=== PATIENT | female | born 1980 | race Caucasian/White ===

== ENCOUNTER 2023-09-18 05:31 | Inpatient (IN) | payer OTHER ==
[2023-09-18] MEDS ORDERED: LORazepam 2 MG/ML INJ IM STA (06:06)
[2023-09-18] MEDS ORDERED: HALOPERIDOL LACTATE 5 MG/ML 1 ML VIAL IM STA (06:21)
[2023-09-18] MEDS ORDERED: diphenhydrAMINE 50 MG/ML 1 ML VIAL IM STA (06:21)
--- NOTE | 2023-09-18 07:30 | ED ---
Psych HPI - General Source: patient Mode of arrival: ambulatory <Elyse Jacinto - Last Filed: 09/18/23 16:00> - General Source: RN notes reviewed, old records reviewed - History of Present Illness MD Complaint: suicidal ideation, feels depressed Associated Psychiatric Symptoms: racing thoughts, auditory hallucinations, visual hallucinations, delusions Quality: constant Improves With: none Treatments Prior to Arrival: placed on mental health hold <Sarmad Diego - Last Filed: 09/18/23 16:43> - General Chief Complaint: Psychiatric Symptoms Stated Complaint: Mental Health Time Seen by Provider: 09/18/23 06:04 - History of Present Illness Initial Comments: Patient is a 43-year-old female who presents via petitioned by her friend for delusions and suicidal ideation. Patient does have delusions during evaluation. She denies homicidal ideation.Patient has no other concerns at this time including fever, chills, headache, shortness of breath, cough, chest pain, abdominal pain, nausea, vomiting, diarrhea, and burning with urination. (Elyse Jacinto) This is a 43-year-old female presenting for psychiatric evaluation and treatment (Sarmad Diego) - Related Data Home Medications Medication Instructions Recorded Confirmed No Known Home Medications 09/18/23 09/18/23 Allergies Allergy/AdvReac Type Severity Reaction Status Date / Time No Known Allergies Allergy Verified 09/18/23 11:03 Review of Systems ROS Other: All systems not noted in ROS Statement are negative. <Elyse Jacinto - Last Filed: 09/18/23 16:00> ROS Other: All systems not noted in ROS Statement are negative. <Sarmad Diego - Last Filed: 09/18/23 16:43> ROS Statement: Those systems with pertinent positive or pertinent negative responses have been documented in the HPI. General Exam Limitations: no limitations General appearance: alert, anxious Head exam: Present: atraumatic, normocephalic, normal inspection Eye exam: Present: normal appearance, PERRL, EOMI. Absent: scleral icterus, conjunctival injection, periorbital swelling Respiratory exam: Present: normal lung sounds bilaterally. Absent: respiratory distress, wheezes, rales, rhonchi, stridor Cardiovascular Exam: Present: regular rate, normal rhythm, normal heart sounds. Absent: systolic murmur, diastolic murmur, rubs, gallop, clicks GI/Abdominal exam: Present: soft, normal bowel sounds. Absent: distended, tenderness, guarding, rebound, rigid Skin exam: Present: warm, dry, intact, normal color. Absent: rash <Elyse Jacinto - Last Filed: 09/18/23 16:00> General appearance: alert, in no apparent distress Head exam: Present: atraumatic, normocephalic, normal inspection Eye exam: Present: normal appearance, PERRL, EOMI. Absent: scleral icterus, conjunctival injection, periorbital swelling ENT exam: Present: normal exam, mucous membranes moist Neck exam: Present: normal inspection. Absent: tenderness, meningismus, lymphadenopathy Respiratory exam: Present: normal lung sounds bilaterally. Absent: respiratory distress, wheezes, rales, rhonchi, stridor Cardiovascular Exam: Present: regular rate, normal rhythm, normal heart sounds. Absent: systolic murmur, diastolic murmur, rubs, gallop, clicks GI/Abdominal exam: Present: soft, normal bowel sounds. Absent: distended, te nderness, guarding, rebound, rigid Extremities exam: Present: normal inspection, full ROM, normal capillary refill. Absent: tenderness, pedal edema, joint swelling, calf tenderness Back exam: Present: normal inspection Neurological exam: Present: alert, oriented X3, CN II-XII intact Psychiatric exam: Present: normal affect, normal mood Skin exam: Present: warm, dry, intact, normal color. Absent: rash <Sarmad Diego - Last Filed: 09/18/23 16:43> Course <Sarmad Diego - Last Filed: 09/18/23 16:43> Vital Signs 09/18/23 09/18/23 05:37 07:42 Temperature 98.2 F 98.6 F Pulse Rate 117 H 71 Respiratory 30 H 18 Rate Blood Pressure 104/68 O2 Sat by Pulse 98 98 Oximetry - Reevaluation(s) Reevaluation #1: 09/18/23 16:43 Medical records reviewed (Sarmad Diego) Reevaluation #2: 09/18/23 16:43 Medical clear for psychiatric evaluation (Sarmad Diego) Medical Decision Making <Elyse Jacinto - Last Filed: 09/18/23 16:00> <GwenrenatoSarmad Alan - Last Filed: 09/18/23 16:43> - Medical Decision Making Was pt. sent in by a medical professional or institution ([facility], [facility] [facility], urgent care, hospital, or fci...) When possible be specific @ -No Did you speak to anyone other than the patient for history (EMS, parent, family, police, friend...)? What history was obtained from this source @ -No Did you review nursing and triage notes (agree or disagree)? Why? @ -I reviewed and agree with nursing and triage notes Were old charts reviewed (outside hosp., previous admission, EMS record, old EKG, old radiological studies, urgent care reports/EKG's, fci records)? Report findings @ -No old charts were reviewed Differential Diagnosis (chest pain, altered mental status, abdominal pain women, abdominal pain men, vaginal bleeding, weakness, fever, dyspnea, syncope, headache, dizziness, GI bleed, back pain, seizure, CVA, palpatations, mental health)? @ -not applicable EKG interpreted by me (3pts min.). @ -As above X-rays interpreted by me (1pt min.). @ -None done CT interpreted by me (1pt min.). @ -None done U/S interpreted by me (1pt. min.). @ -None done What testing was considered but not performed or refused? (CT, X-rays, U/S, labs)? Why? @ -None What meds were considered but not given or refused? Why? @ -None Did you discuss the management of the patient with other professionals (professionals i.e. [facility], [facility], lab, RT, psych nurse, social media manager, metal box maker, teacher, immigration officer, patient case coordinator)? Give summary @ -No Was smoking cessation discussed for >3mins.? @ -[No] Was critical care preformed (if so, how long)? @ -[No] Were there social determinants of health that impacted care today? How? (Homelessness, low income, unemployed, alcoholism, drug addiction, transportation, low edu. Level, literacy, decrease access to med. care, fdc, rehab)? @ -[No] Was there de-escalation of care discussed even if they declined (Discuss DNR or withdrawal of care, Hospice)? DNR status @ -[No] What co-morbidities impacted this encounter? (DM, HTN, Smoking, COPD, CAD, Cancer, CVA, ARF, Chemo, Hep., AIDS, mental health diagnosis, sleep apnea, morbid obesity)? @ -[None] Was patient admitted / discharged? Hospital course, mention meds given and route, prescriptions, significant lab abnormalities, going to OR and other pertinent info. @ -43 year old female presenting for psychiatric evaluation. Patient is manic and very upset during evaluation she did try to elope. She was given Ativan for acute psychosis she did require further medication. Further testing with laboratory studies and imaging not indicated at this time. Patient is cleared for psychiatric evaluation Patient evaluated by EPS she will be admitted for further evaluation and management Undiagnosed new problem with uncertain prognosis? @ -[No] Drug Therapy requiring intensive monitoring for toxicity (Heparin, Nitro, Insulin, Cardizem)? @ -[No] Were any procedures done? @ -[No] Diagnosis/symptom? @ -acute psychosis Acute, or Chronic, or Acute on Chronic? @ -acute Uncomplicated (without systemic symptoms) or Complicated (systemic symptoms)? @ uncomplicated Side effects of treatment? @ -[No] Exacerbation, Progression, or Severe Exacerbation? @ -[No] Poses a threat to life or bodily function? How? (Chest pain, [place], [place], pneumonia, PE, COPD, DKA, ARF, appy, cholecystitis, CVA, Diverticulitis, Homicidal, Suicidal, threat to staff... and all critical care pts) @ No is my attending (Elyse Jacinto) 43 female will be admitted for psychiatric evaluation and treatment (Sarmad Diego) - Lab Data Lab Results 09/18/23 Range/Units 12:12 Urine Opiates Screen Not Detected (NotDetected) Ur Oxycodone Screen Not Detected (NotDetected) Urine Methadone Screen Not Detected (NotDetected) Ur Propoxyphene Screen Not Detected (NotDetected) Ur Barbiturates Screen Not Detected (NotDetected) U Tricyclic Antidepress Not Detected (NotDetected) Ur Phencyclidine Scrn Not Detected (NotDetected) Ur Amphetamines Screen Not Detected (NotDetected) U Methamphetamines Scrn Not Detected (NotDetected) U Benzodiazepines Scrn Detected H (NotDetected) Urine Cocaine Screen Not Detected (NotDetected) U Marijuana (THC) Screen Detected H (NotDetected) Disposition <Elyse Jacinto - Last Filed: 09/18/23 16:00> Is patient prescribed a controlled substance at d/c from ED?: No <Sarmad Diego - Last Filed: 09/18/23 16:43> Clinical Impression: Acute psychosis Disposition: TRANSFER TO PSYCH HOSP/UNIT Condition: Fair Referrals: None,Stated [Primary Care Provider] - 1-2 days
[2023-09-18 12:38] LABS: Amphetamine Screen,Urine Not Detected (NotDetected); Barbiturate Screen,Urine Not Detected (NotDetected); Benzodiazepines Screen,Urine Detected (NotDetected); Cocaine Screen,Urine Not Detected (NotDetected); Methadone Screen, Urine Not Detected (NotDetected); Opiate Screen,Urine Not Detected (NotDetected); Oxycodone Screen, Urine Not Detected (NotDetected); Phencyclidine Screen,Urine Not Detected (NotDetected); Tricyclic Antidepressant,Urine Not Detected (NotDetected); Urn Cannabinoid Scrn Detected (NotDetected)
[2023-09-18] MEDS ORDERED: LORazepam 2 MG/ML INJ IM PRN (17:03)
[2023-09-18] MEDS ORDERED: HALOPERIDOL LACTATE 5 MG/ML 1 ML VIAL IM PRN (17:05)
[2023-09-18] MEDS: LORazepam 1 MG TAB PO PRN (19:39)
[2023-09-18] MEDS: haloperidoL 5 MG TAB PO SCH (19:39)
[2023-09-19] MEDS: haloperidoL 5 MG TAB PO SCH ×2 (00:03→09:56)
--- NOTE | 2023-09-19 06:16 | P.MDCNMH ---
History of Present Illness H&P Date: 09/19/23 Chief Complaint: Medical evaluation 43-year-old female no significant past medical history Patient was brought into the hospital petitioned by her friend for delusional and suicidal ideation. Patient currently denies any hallucinations or suicidal thoughts. She denies any medical concerns at this time.\ she denies any fever, chills, cough, sore throat, chest pain , trouble breathing , nausea , vomiting, abd pain , changes in urinary or bowel habits. she denies tobacco smoking, she claims that she uses THC oils and social alcohol review of systems Pertinent positives as noted in HPI. All other systems were reviewed and are negative on exam Constitutional: No acute distress, conversant Eyes: Anicteric sclerae, moist conjunctiva, Pupils equal round reactive to light ENMT: NC/AT Lungs: Clear to auscultation Clear to percussion Normal respiratory effort, no accessory muscle use Cardiovascular: Heart regular in rate and rhythm, No murmurs, gallops, or rubs No peripheral edema Abdominal: Soft Nontender, no guarding, rebound or rigidity Abdomen moving with respiration Normoactive bowel sounds Extremities: No digital cyanosis No clubbing Pedal pulses intact and symmetrical Radial pulses intact and symmetrical No calf tenderness Psychiatric: Alert and oriented to person, place and time Neuro Muscles Strength 5/5 in all 4 extremities Sensation to light touch grossly present throughout Cranial nerves II-XII grossly intact Past Medical History Past Medical History: No Reported History History of Any Multi-Drug Resistant Organisms: None Reported Past Surgical History: No Surgical Hx Reported Past Psychological History: Anxiety, Depression Smoking Status: Never smoker Medications and Allergies Home Medications Medication Instructions Recorded Confirmed Type No Known Home Medications 09/18/23 09/18/23 History Allergies Allergy/AdvReac Type Severity Reaction Status Date / Time No Known Allergies Allergy Verified 09/19/23 00:29 Physical Exam Vitals: Vital Signs Temp Pulse Pulse Resp BP BP Pulse Ox 09/18/23 20:00 98.4 F 104 H 18 124/79 98 09/18/23 07:42 98.6 F 71 18 104/68 98 Intake and Output 09/18/23 09/18/23 09/19/23 14:59 22:59 06:59 Other: Weight 52.163 kg Cranial Nerve Examination - Cranial Nerves Cranial Nerve II- Optic: Intact Cranial Nerve III- Oculomotor: Intact Cranial Nerve IV- Trochlear: Intact Cranial Nerve V- Trigeminal: Intact Cranial Nerve - Abducens: Intact Cranial Nerve VII- Facial: Intact Cranial Nerve VIII- Auditory: Intact Cranial Nerve IX- Glossopharyngeal: Intact Cranial Nerve X- Vagus: Intact Cranial Nerve XI- Accessory: Intact Cranial Nerve XII- Hypoglossal: Intact Results Labs: Abnormal Lab Results - Last 24 Hours (Table) 09/18/23 Range/Units 12:12 U Benzodiazepines Scrn Detected H (NotDetected) U Marijuana (THC) Screen Detected H (NotDetected) Assessment and Plan Assessment: Delusional thoughts suicidal ideation Management per psych Stable from medical standpoint Blood work still pending Thank you for this consultation
[2023-09-19] MEDS ORDERED: PALIPERIDONE 3 MG TAB.ER.24 PO STA (10:25)
[2023-09-19 10:28] LABS: Basophils % (A) 0 %; Eosinophils % (A) 1 %; HCT 42.4 % (34.0-46.0); HGB 14.1 gm/dL (11.4-16.0); Lymphocytes # (A) 1.2 k/uL (1.0-4.8); Lymphocytes % (A) 16 %; MCH 30.9 pg (25.0-35.0); MCHC 33.3 g/dL (31.0-37.0); MCV 92.9 fL (80.0-100.0); Mean Platelet Volume 8.1; Monocytes # (A) 0.5 k/uL (0-1.0); Monocytes % (A) 7 %; Neutrophils # (A) 5.7 k/uL (1.3-7.7); Neutrophils % (A) 75 %; Platelet Count 210 k/uL (150-450); RBC 4.57 m/uL (3.80-5.40); RDW 12.6 % (11.5-15.5); WBC 7.6 k/uL (3.8-10.6)
--- NOTE | 2023-09-19 10:32 | P.HP ---
Psychiatric H&P - . H&P Date: 09/19/23 History & Physical: Allergies Allergy/AdvReac Type Severity Reaction Status Date / Time No Known Allergies Allergy Verified 09/19/23 00:29 Vital Signs Temp 97.6 F 09/19/23 06:32 Pulse 115 H 09/19/23 06:32 Resp 18 09/18/23 20:00 BP 128/74 09/19/23 06:32 Pulse Ox 98 09/18/23 20:00 FiO2 Intake & Output 09/18/23 09/19/23 09/19/23 18:59 06:59 18:59 Weight 52.163 kg Laboratory Last Values Urine Opiates Screen Not Detected (NotDetected) 09/18/23 12:12 Ur Oxycodone Screen Not Detected (NotDetected) 09/18/23 12:12 Urine Methadone Screen Not Detected (NotDetected) 09/18/23 12:12 Ur Propoxyphene Screen Not Detected (NotDetected) 09/18/23 12:12 Ur Barbiturates Screen Not Detected (NotDetected) 09/18/23 12:12 U Tricyclic Antidepress Not Detected (NotDetected) 09/18/23 12:12 Ur Phencyclidine Scrn Not Detected (NotDetected) 09/18/23 12:12 Ur Amphetamines Screen Not Detected (NotDetected) 09/18/23 12:12 U Methamphetamines Scrn Not Detected (NotDetected) 09/18/23 12:12 U Benzodiazepines Scrn Detected (NotDetected) H 09/18/23 12:12 Urine Cocaine Screen Not Detected (NotDetected) 09/18/23 12:12 U Marijuana (THC) Screen Detected (NotDetected) H 09/18/23 12:12 Coronavirus (PCR) Not Detected (Not Detectd) 09/18/23 17:02 09/19/23 10:25 IDENTIFYING DATA: Patient is a 43-year-old female who is currently staying with her friend in the area, but currently lives with her in [place] and was visiting. Denies having any kids. HPI: Patient presented to the hospital yesterday and apparently was complaining of depression and suicidal ideations. Patient was petitioned by her friend stating "talking to spirits, thinks she is Kalyan, worried her family's.okay, calling police to check on friends". Petition also states the patient has not been sleeping, panic attacks, outbursts, erratic thoughts, paranoid thinking, history of suicide". Patient was admitted involuntarily to the mental health unit. Patient was seen today pacing the unit appeared to be disheveled in appearance. She was agreeable to streaked red in the office. She was fairly labile, tearful when speaking about why she is in the hospital. She was positive for benzodiazepines and THC on her UDS. She claims that "my family doesn't trust me". She claims that she witnessed Marko downhill since 2020. Claims that she only wants to go to the [facility] and smoke marijuana as her "medication". Claims that she is focused on discharge and wants to leave at this time. Has poor decision making skills, poor insight and judgment. She did not want to take other medications. She claims that she has a several million dollar net worth, she is fairly grandiose, talking about negotiating against the largest [employer] in the [place] as her job. She was fairly tearful, she was displaying other delusions and also paranoia towards others including her family. She states that she is seeing "signs everywhere". She states that several of the nurses that interacted with her in the ER and also on the unit have names of her relatives. She states that her sleep has been very poor lately, appetite as been fair.Patient denies any suicidal or homicidal ideations intent or plan. At this time patient denies any auditory or visual hallucinations. She has a flight of ideas, difficult to redirect. Pacing the room. She claims that she only smokes marijuana and does THC products. Denies any cigarettes or any other recreational drug use. PAST PSYCHIATRIC HISTORY: Patient states that she has no history of mental illness. Patient denies being on any psychiatric medications. Patient denies any previous psychiatric hospitalizations. Patient denies any psychiatric outpatient follow-up. Patient claims that she overdosed in her car in 2020 on pills. PMH:[As per ER note ALLERGIES: as per EMR CHEMICAL DEPENDENCY HISTORY: as per HPI FAMILY PSYCHIATRIC/SUBSTANCE USE HISTORY: denies SOCIAL HISTORY: Patient was born and raised in [place] however moved to [place] with her . She is currently visiting a friend in the area. She states that she has a degree in food [employer] and also organizational communications. She denies having any kids, she denies any legal history. MENTAL STATUS EXAM: General Appearance: Patient appears to be disheveled in appearance, unkempt hair, rosenberg and black hair, stated age is alert, pacing the room and labile. Patient appears to have poor hygiene and grooming. Behavior: Patient is seated without any agitated behavior. unPredictable. Speech: Patient's speech is fluent and nonpressured. Rambling. Mood/Affect: Patient reports their mood is depressed, affect is congruent and tearful at times Suicidality/Homicidality: Patient denies having any homicidal ideation intent or plan. Denies any suicidal ideations intent or plan Perceptions: Patient denies any visual hallucinations and denies any auditory hallucinations Though content/process: Illogical, grandiose thoughts, endorsing paranoia. Memory and concentration: AOX3, grossly intact for the purposes of this session. Can spell "WORLD" backwards Judgment and insight: poor STRENGTHS/WEAKNESSES: strength is that patient is resilient. Weakness is that patient has poor judgment and is impulsive INTELLECT: average IMPRESSIONS: Bipolar disorder, mixed episode with psychotic features Cannabis use disorder PLAN: -Patient is admitted under involuntary status to MHU for stabilization of psychiatric symptoms and safety. Patient has not signed adult voluntary form and medication consent and is placed in patient's chart. A second certification was completed and along with petition will be filed for court. -Medications : Paliperidone 3 mg daily at bedtime for mood stabilization/psychosis, trazodone when necessary for sleep. [place] 150 mg 3 times a day for mood stabilization. -Ativan and Haldol PRN for agitation/aggression -Patient was informed of the risks, benefits and side effects of the medication -Internal Medicine consult to perform medical evaluation and physical. -NRT - not needed as patient does not smoke -SW on board for discharge planning. Encourage patient to participate in groups to work on coping skills. Will await deferral and court date.
[2023-09-19] MEDS ORDERED: traZODone HCL 100 MG TAB PO PRN (10:33)
[2023-09-19 10:42] LABS: ALT 21 U/L (4-34); AST 50 U/L (14-36); African American GFR (CKD) >90 (>60 ml/min/1.73 sqM); Albumin 4.6 g/dL (3.5-5.0); Alkaline Phosphatase 61 U/L (38-126); Anion Gap 11 mmol/L; Blood Urea Nitrogen 8 mg/dL (7-17); Calcium 9.6 mg/dL (8.4-10.2); Carbon Dioxide 23 mmol/L (22-30); Chloride 105 mmol/L (98-107); Glucose 89 mg/dL (74-99); Non-African American GFR(CKD) >90 (>60 ml/min/1.73 sqM); Potassium 4.3 mmol/L (3.5-5.1); Sodium 139 mmol/L (137-145); Total Bilirubin 0.9 mg/dL (0.2-1.3); Total Protein 7.6 g/dL (6.3-8.2)
[2023-09-19] MEDS: LITHIUM CARBONATE 150 MG CAP PO SCH ×3 (11:15→20:40)
[2023-09-19] MEDS: PALIPERIDONE 3 MG TAB.ER.24 PO SCH (20:40)
[2023-09-19 23:12] LABS: Chol/HDL Ratio 3.42 Ratio; LDL Cholesterol,Calculated 108.1 mg/dL (0.0-131.0)
[2023-09-20] MEDS: LORazepam 1 MG TAB PO PRN (01:14)
[2023-09-20] MEDS: haloperidoL 5 MG TAB PO PRN (01:14)
[2023-09-20] MEDS: MAG HYDROX/AL HYDROX/SIMETH 30 ML CUP PO PRN ×2 (01:16→08:37)
[2023-09-20] MEDS: LITHIUM CARBONATE 150 MG CAP PO SCH (08:11)
[2023-09-20] MEDS: ONDANSETRON ODT 4 MG TAB PO PRN (11:02)
--- NOTE | 2023-09-20 11:33 | P.PN ---
Progress Note - Text Progress Note Date: 09/20/23 Interval history: Patient was seen today wandering the hallways and was agreeable technical publications writer in her room today. She continues to be fairly argumentative, she states that she does not believe that she needs any medications at this time. She claims that the lithium was causing her to have diarrhea. She states that she was feeling sick this morning and nauseous from her breakfast. She claims that she has a "$100 million contract I'm negotiating". She continues to have racing thoughts, flight of ideas. Continues to be argumentative and states that her her rights are being "violated". We spoke more about the court process and patient continues to demand discharge. She has very poor insight and judgment. He claims that her sleep was poor last night, at this time denying any auditory or visual hallucinations. Denying any suicidal or homicidal ideations intent or plan. MENTAL STATUS EXAM: General Appearance: Patient appears to be mildly improving appearance, unkempt hair, rosenberg and black hair, stated age is alert, uncooperative/argumentative. Behavior: Patient is seated without any agitated behavior. Uncooperative Speech: Patient's speech is fluent and nonpressured. Rambling. Mood/Affect: Patient reports their mood is depressed, affect is congruent and constricted Suicidality/Homicidality: Patient denies having any homicidal ideation intent or plan. Denies any suicidal ideations intent or plan Perceptions: Patient denies any visual hallucinations and denies any auditory hallucinations Though content/process: Illogical, grandiose thoughts, not endorsing paranoia. argumentative. Memory and concentration: AOX3, grossly intact for the purposes of this session Judgment and insight: poor IMPRESSIONS: Bipolar disorder, mixed episode with psychotic features Cannabis use disorder PLAN: -Patient is admitted under involuntary status to MHU for stabilization of psychiatric symptoms and safety. Patient has not signed adult voluntary form and medication consent and is placed in patient's chart. A second certification was completed and along with petition will be filed for court. -Medications : Paliperidone 3 mg daily at bedtime for mood stabilization/psychosis, trazodone when necessary for sleep. d/c [place] and replace with lamictal 25 mg 2 times a day for mood stabilization. -Ativan and Haldol PRN for agitation/aggression -NRT - not needed as patient does not smoke -SW on board for discharge planning. Encourage patient to participate in groups to work on coping skills. Will await deferral and court date.
[2023-09-20] MEDS: PALIPERIDONE 3 MG TAB.ER.24 PO SCH (20:22)
[2023-09-20] MEDS: lamoTRIgine 25 MG TAB PO SCH (20:23)
[2023-09-21] MEDS: MAG HYDROX/AL HYDROX/SIMETH 30 ML CUP PO PRN ×2 (03:21→08:58)
[2023-09-21] MEDS: ONDANSETRON ODT 4 MG TAB PO PRN (03:32)
[2023-09-21] MEDS: lamoTRIgine 25 MG TAB PO SCH ×3 (08:37→20:19)
--- NOTE | 2023-09-21 12:25 | P.PN ---
Progress Note - Text Progress Note Date: 09/21/23 Interval history: Patient was seen today wandering the hallways and was agreeable to seek to rebecca nicole today in the office. Patient states that she does not need the medications and continues to focus on getting her "THC" and states that her best medication as gardening. She believes that the parole paliperidone is only for sleep. She claims that she is not tolerating it well and has "stomachaches". She is not reporting any diarrhea today. She claims that she does not need to be here in the hospital and was again demanding discharge. Continues to be fairly grandiose, argumentative and uncooperative. We spoke more about the court process and patient continues to demand discharge. She has very poor insight and judgment. sHe claims that her sleep was poor last night, at this time denying any auditory or visual hallucinations. Denying any suicidal or homicidal ideations intent or plan. MENTAL STATUS EXAM: General Appearance: Patient appears to be mildly improving appearance, unkempt hair, rosenberg and black hair, stated age is alert, uncooperative/argumentative. Behavior: Patient is seated without any agitated behavior. Uncooperative. irrational. Speech: Patient's speech is fluent and nonpressured. Rambling. Mood/Affect: Patient reports their mood is depressed, affect is congruent and constricted Suicidality/Homicidality: Patient denies having any homicidal ideation intent or plan. Denies any suicidal ideations intent or plan Perceptions: Patient denies any visual hallucinations and denies any auditory hallucinations Though content/process: Illogical, grandiose thoughts, not endorsing paranoia. argumentative. Memory and concentration: AOX3, grossly intact for the purposes of this session Judgment and insight: poor IMPRESSIONS: Bipolar disorder, mixed episode with psychotic features Cannabis use disorder PLAN: -Patient is admitted under involuntary status to MHU for stabilization of psychiatric symptoms and safety. Patient has not signed adult voluntary form and medication consent and is placed in patient's chart. A second certification was completed and along with petition will be filed for court. -Medications : d/c Paliperidone due to pt complaining of intolerance, replaced with geodon 20 mg bid for mood stabilization/psychosis, trazodone when necessary for sleep. melatonin for sleep. continue lamictal 25 mg 2 times a day for mood stabilization. patient has been refusing most medications. -Ativan and Haldol PRN for agitation/aggression -NRT - not needed as patient does not smoke -SW on board for discharge planning. Encourage patient to participate in groups to work on coping skills. Will await deferral and court date.
[2023-09-21] MEDS: ZIPRASIDONE 20 MG CAP PO SCH ×2 (20:07→20:19)
[2023-09-21] MEDS: MELATONIN 5 MG TABLET PO SCH (20:07)
[2023-09-22] MEDS: lamoTRIgine 25 MG TAB PO SCH ×3 (09:01→20:09)
[2023-09-22] MEDS: ZIPRASIDONE 20 MG CAP PO SCH (09:01)
--- NOTE | 2023-09-22 11:11 | P.PN ---
Progress Note - Text Progress Note Date: 09/22/23 Interval history: Patient was seen today wandering the hallways and was agreeable to seek to rebecca nicole today in the office. Patient was carrying a folder full of papers. She sat down and was immediately argumentative and hostile with real estate underwriter. She swore at him several times. She personal questions towards real estate underwriter which were inappropriate. She demanded to have a salad ordered from the kitchen. She claims that she signed the paperwork from the disability attorney and began rambling about it. She continues to be fairly grandiose and intrusive. She continues to demand discharge and believes that she is being "controlled". She has very poor insight and judgment. sHe claims that her sleep was poor last night, at this time denying any auditory or visual hallucinations. Denying any suicidal or homicidal ideations intent or plan. patient was asked to leave the office as she was being rude and hostile with real estate underwriter. MENTAL STATUS EXAM: General Appearance: Patient appears to be mildly improving appearance, unkempt hair, rosenberg and black hair, stated age is alert, uncooperative/argumentative. Behavior: Patient is seated without any agitated behavior. Uncooperative. irrational. demanding. Speech: Patient's speech is fluent and nonpressured. Rambling. Mood/Affect: Patient reports their mood is depressed, affect is congruent and constricted Suicidality/Homicidality: Patient denies having any homicidal ideation intent or plan. Denies any suicidal ideations intent or plan Perceptions: Patient denies any visual hallucinations and denies any auditory hallucinations Though content/process: Illogical, grandiose thoughts, not endorsing paranoia. argumentative. hostile. Memory and concentration: AOX3, grossly intact for the purposes of this session Judgment and insight: poor IMPRESSIONS: Bipolar disorder, mixed episode with psychotic features Cannabis use disorder PLAN: -Patient is admitted under involuntary status to [facility] for stabilization of psychiatric symptoms and safety. Patient has not signed adult voluntary form and medication consent and is placed in patient's chart. -Medications :increase geodon 40 mg bid for mood stabilization/psychosis, trazodone when necessary for sleep. melatonin for sleep. increase lamictal 25 mg 3 times a day for mood stabilization -Ativan and Haldol PRN for agitation/aggression -NRT - not needed as patient does not smoke -SW on board for discharge planning. Encourage patient to participate in groups to work on coping skills. patient deferred with the disability attorney.
[2023-09-22] MEDS: LORazepam 1 MG TAB PO PRN (11:27)
[2023-09-22] MEDS: haloperidoL 5 MG TAB PO PRN (11:27)
[2023-09-22] MEDS: ASPIRIN-ACET-CAFF 250-250-65MG 1 EACH TAB PO PRN (12:43)
[2023-09-22] MEDS: ZIPRASIDONE 40 MG CAP PO SCH (20:09)
[2023-09-22] MEDS: MELATONIN 5 MG TABLET PO SCH (20:09)
[2023-09-23] MEDS: LORazepam 1 MG TAB PO PRN (05:44)
[2023-09-23] MEDS: ZIPRASIDONE 40 MG CAP PO SCH ×2 (07:53→20:32)
[2023-09-23] MEDS: lamoTRIgine 25 MG TAB PO SCH ×2 (07:53→20:32)
[2023-09-23] MEDS: ONDANSETRON ODT 4 MG TAB PO PRN (09:16)
--- NOTE | 2023-09-23 11:05 | P.PN ---
Progress Note - Text Progress Note Date: 09/23/23 Interval history: Patient was seen today wandering the hallways and was agreeable to seek to writ er today in the office. Patient requested to have a automatic paint sprayer operator present during the conversation. She continues to be fairly demanding argumentative, demanded to know press writer's credentials. It was explained to her the credentials and schooling. Patient continues to focus on irrelevant topics and claims that she is worth "$2.5 million" and demands to be seen by another psychiatrist. She continued to focus on her right being violated. She was requested several times to speak with the rights advocate. She also was focusing on "practicing Western medicine". She claims that she signed the paperwork from the deputy attorney general however is not agreeing with taking medications. She continues to be fairly grandiose and intrusive. She has very poor insight and judgment. sHe claims that her sleep was poor last night, at this time denying any auditory or visual hallucinations. Denying any suicidal or homicidal ideations intent or plan. patient was asked to leave the office as she was being rude and hostile with press writer. MENTAL STATUS EXAM: General Appearance: Patient appears to be mildly improving appearance, unkempt hair, rosenberg and black hair, stated age is alert, uncooperative/argumentative. Behavior: Patient is seated without any agitated behavior. Uncooperative. irrational. demanding. confrontational Speech: Patient's speech is fluent and nonpressured. Rambling. Mood/Affect: Patient reports their mood is depressed, affect is congruent and constricted Suicidality/Homicidality: Patient denies having any homicidal ideation intent or plan. Denies any suicidal ideations intent or plan Perceptions: Patient denies any visual hallucinations and denies any auditory hallucinations Though content/process: Illogical, grandiose thoughts, not endorsing paranoia. argumentative. hostile. Memory and concentration: AOX3, grossly intact for the purposes of this session Judgment and insight: poor IMPRESSIONS: Bipolar disorder, mixed episode with psychotic features Cannabis use disorder PLAN: -Patient is admitted under involuntary status to [facility] for stabilization of psychiatric symptoms and safety. Patient has not signed adult voluntary form and medication consent and is placed in patient's chart. -Medications : increase geodon 60 mg bid for mood stabilization/psychosis, trazodone when necessary for sleep. melatonin for sleep. increase lamictal 50 mg 2 times a day for mood stabilization -Ativan and Haldol PRN for agitation/aggression -NRT - not needed as patient does not smoke -SW on board for discharge planning. Encourage patient to participate in groups to work on coping skills. patient deferred with the deputy attorney general.
[2023-09-23] MEDS: MELATONIN 5 MG TABLET PO SCH (20:31)
[2023-09-23] MEDS ORDERED: ZIPRASIDONE 60 MG CAP PO SCH (21:00)
[2023-09-23] MEDS: traZODone HCL 50 MG TAB PO PRN (22:31)
[2023-09-24] MEDS: LORazepam 1 MG TAB PO PRN (05:46)
[2023-09-24] MEDS: lamoTRIgine 25 MG TAB PO SCH ×2 (08:49→20:44)
[2023-09-24] MEDS: ZIPRASIDONE 40 MG CAP PO SCH ×2 (08:49→20:44)
--- NOTE | 2023-09-24 11:37 | P.PN ---
Progress Note - Text Progress Note Date: 09/24/23 Interval history: Patient was seen today wandering the hallways and was agreeable to seek to rebecca nicole today in the office. Patient continues to request a battery assembler plastic in the meeting and battery assembler plastic was provided. Patient continues to be challenging, argumentative about medications. She believes "I don't need these meds" and believes that she once the dose is lowered. She stopped taking her medications yesterday. She continues to challenge va underwriter's credentials and knowledge about her. She believes that she is not bipolar and that she had a "bad day of my life". She was tearful at times continues to be labile and intrusive, aggressive. She continues to be fairly grandiose and intrusive. She has very poor insight and judgment. sHe claims that her sleep was poor last night, at this time denying any auditory or visual hallucinations. Denying any suicidal or homicidal ideations intent or plan MENTAL STATUS EXAM: General Appearance: Patient appears to be mildly improving appearance, unkempt hair, rosenberg and black hair, stated age is alert, uncooperative/argumentative. Behavior: Patient is seated without any agitated behavior. Uncooperative. irrational. demanding. confrontational Speech: Patient's speech is fluent and nonpressured. Rambling. Mood/Affect: Patient reports their mood is depressed, affect is congruent and constricted Suicidality/Homicidality: Patient denies having any homicidal ideation intent or plan. Denies any suicidal ideations intent or plan Perceptions: Patient denies any visual hallucinations and denies any auditory hallucinations Though content/process: Illogical, grandiose thoughts, not endorsing paranoia. argumentative. hostile. Memory and concentration: AOX3, grossly intact for the purposes of this session Judgment and insight: poor IMPRESSIONS: Bipolar disorder, mixed episode with psychotic features Cannabis use disorder PLAN: -Patient is admitted under involuntary status to [facility] for stabilization of psychiatric symptoms and safety. Patient has not signed adult voluntary form and medication consent and is placed in patient's chart. -Medications : geodon 40 mg bid for mood stabilization/psychosis, trazodone when necessary for sleep. melatonin for sleep. continue lamictal 50 mg 2 times a day for mood stabilization. patient is refusing medications at this time. -Ativan and Haldol PRN for agitation/aggression -NRT - not needed as patient does not smoke -SW on board for discharge planning. Encourage patient to participate in groups to work on coping skills. patient deferred with the contracts attorney however now patient is refusing treatment/meds, filing demand for hearing today.
[2023-09-24] MEDS: MELATONIN 5 MG TABLET PO SCH (20:35)
[2023-09-24] MEDS: traZODone HCL 50 MG TAB PO PRN (22:10)
--- NOTE | 2023-09-25 09:25 | P.PN ---
Progress Note - Text Progress Note Date: 09/25/23 Interval history: Patient was seen today wandering the hallways and was agreeable to seek to rebecca nicole today in the office. Patient continues to refuse medications. Patient continues to request a chimney mechanic in the meeting and chimney mechanic was provided. Patient continues to be challenging, argumentative about medications and her treatment here. she asked about getting pedialyte. She believes that she is not bipolar and does not need medication. She was tearful at times continues to be labile and intrusive, aggressive. She continues to be fairly grandiose and intrusive and is requesting a second opinion on her assessment. She has very poor insight and judgment. she claims that her sleep was poor last night, at this time denying any auditory or visual hallucinations. Denying any suicidal or homicidal ideations intent or plan. MENTAL STATUS EXAM: General Appearance: Patient appears to be mildly improving appearance, unkempt hair, rosenberg and black hair, stated age is alert, uncooperative/argumentative. Behavior: Patient is seated without any agitated behavior. Uncooperative. irrational. demanding. confrontational Speech: Patient's speech is fluent and nonpressured. Rambling. Mood/Affect: Patient reports their mood is depressed, affect is congruent and constricted Suicidality/Homicidality: Patient denies having any homicidal ideation intent or plan. Denies any suicidal ideations intent or plan Perceptions: Patient denies any visual hallucinations and denies any auditory hallucinations Though content/process: Illogical, grandiose thoughts, not endorsing paranoia. argumentative. hostile. Memory and concentration: AOX3, grossly intact for the purposes of this session Judgment and insight: poor IMPRESSIONS: Bipolar disorder, mixed episode with psychotic features Cannabis use disorder PLAN: -Patient is admitted under involuntary status to [facility] for stabilization of psychi atric symptoms and safety. Patient has not signed adult voluntary form and medication consent and is placed in patient's chart. -Medications : geodon 40 mg bid for mood stabilization/psychosis, trazodone when necessary for sleep. melatonin for sleep. continue lamictal 50 mg 2 times a day for mood stabilization. patient is refusing medications at this time. -Ativan and Haldol PRN for agitation/aggression -NRT - not needed as patient does not smoke -SW on board for discharge planning. Encourage patient to participate in groups to work on coping skills. patient deferred with the contract attorney however now patient is refusing treatment/meds, awaiting hearing date.
[2023-09-25] MEDS: ZIPRASIDONE 40 MG CAP PO SCH ×2 (09:30→21:15)
[2023-09-25] MEDS: lamoTRIgine 25 MG TAB PO SCH ×2 (09:30→21:15)
[2023-09-25] MEDS: ASPIRIN-ACET-CAFF 250-250-65MG 1 EACH TAB PO PRN (09:48)
[2023-09-25] MEDS: MELATONIN 5 MG TABLET PO SCH (21:13)
[2023-09-25] MEDS: traZODone HCL 50 MG TAB PO PRN (23:59)
[2023-09-26] MEDS: lamoTRIgine 25 MG TAB PO SCH ×2 (08:07→19:31)
[2023-09-26] MEDS: ZIPRASIDONE 40 MG CAP PO SCH ×2 (08:07→19:31)
--- NOTE | 2023-09-26 17:25 | P.PN ---
Progress Note - Text Progress Note Date: 09/26/23 Interval history: Patient was seen today wandering the hallways and was agreeable to speak to this commercial insurance underwriter in the office. She states she has been waiting to see a female doctor. When asked if she has a history of physical, emotional or sexual abuse, she states she does not know. She has been noncompliant with her medications and is refusing the Geodon and Lamictal, but has been taking the Trazodone and melatonin without any benefit since she continues to be awake most of the night. She is recorded as having slept 45 minutes last night which she attempts to minimize and states she is not sleeping at all because she is here. She displays significant mood and affective lability, is talkative, argumentative, changes topics frequently with flight of ideas, is grandiose and has poor insight into her mental health and need for hospitalization. She states she is "bipolar and am managing without medication, and I have been my whole life. I had a bad week and I am here." She states she would like to continue her care in [place] or [place]. She states she drove from [place] to [place] to try to get to her family's cottage in [place], [place] which is where she recovered from her past suicide attempt around age [age] years old. She states she wants fresh air and wants to go outside. 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 She states there have been "a lot of spiritual connections" and does not want to elaborate on this. She insists the I speak with her sister Alondra Chapman, which I did with patient's permission. Alondra reports patient "has had anxiety and depression all her life. 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 Suicide attempt 2 years ago. In 2020, an employee hurt herself on the job resulting in $750,000 insurance claim. Last year bout of depression. Self-medicating with marijuana. Hallucinating, medium, calling people from 1am-5am, panting like a dog, argumentative, calling anyone, mood lability, yelling, crying, not making sense, paranoid thought someone was following her, worried about her in-laws, had suicidal thoughts. She's belligerant and angry. This is the first manic behavior that family knows about. in [place] thinks she may have been smoking some strong marijuana. Magical thinking, grandiose, belligerant. Patient [place] [facility] [place]. She is very smart. She has an answer for everything" Patient admits to smoking "a lot" of marijuana and we discussed the effect of cannabis on her mental health. She states "I need flower" referring to the marijuana she uses. She wants to understand more about THC, gummies, and research being done in [place]. She continues to be labile and is crying. She admits she feels traumatized by one of her employees at her [employer] business in [place] being hurt and wants her to quit the business. She claims "My sister is embarrassed from me." When attempting to discuss medications with patient, she continues to refuse medications at this time, is not receptive to psychoeducation. She states she prefers to wait for court on 10/07/23 and abruptly ends the assessment and leaves the room. MENTAL STATUS EXAM: General Appearance: Patient appears to be slender female with curly hair, dressed in casual attire. Behavior: Patient is seated without any agitated behavior, but appears restless, impulsive. Uncooperative. irrational. demanding. confrontational Speech: Patient's speech is fluent and nonpressured. Rambling. Mood/Affect: Patient reports their mood is depressed, affect is congruent and constricted Suicidality/Homicidality: Patient denies having any homicidal ideation intent or plan. Denies any suicidal ideations intent or plan Perceptions: Patient denies any visual hallucinations and denies any auditory hallucinations Though content/process: Illogical, grandiose thoughts, not endorsing paranoia. argumentative. hostile. Memory and concentration: AOX3, grossly intact for the purposes of this session Judgment and insight: poor Assessment/Plan: Continue with current diagnosis. Patient continues to meet criteria for inpatient psychiatric admission for symptom stabilization and safety. Patient will be continued on current regime which she continues to refuse and is refusing to discuss other medications with me today. She would benefit from a treatment order due to noncompliance. Monitor for medication compliance and for any psychotropic medication side effects. Will continue to monitor ongoing response to treatment. Encouraged participation in milieu.
[2023-09-26] MEDS: MELATONIN 5 MG TABLET PO SCH (19:30)
[2023-09-26] MEDS: traZODone HCL 50 MG TAB PO PRN (21:22)
[2023-09-27] MEDS: ZOLPIDEM 5 MG TAB PO PRN ×2 (03:35→21:20)
[2023-09-27] MEDS: ZIPRASIDONE 40 MG CAP PO SCH ×2 (07:59→20:20)
[2023-09-27] MEDS: lamoTRIgine 25 MG TAB PO SCH ×2 (07:59→20:20)
[2023-09-27] MEDS: MAGNESIUM HYDROXIDE 2,400 MG/30 ML CUP PO PRN (14:36)
[2023-09-27] MEDS: SENNOSIDES 8.6 MG TAB PO PRN (15:10)
--- NOTE | 2023-09-27 17:27 | P.PN ---
Progress Note - Text Progress Note Date: 09/27/23 Interval history: Patient was seen walking the hallway and was directable and agreeable to speak with policy writer typist. She displays less mood and affective lability as compared to yesterday, however she continues to demonstrate symptoms of jw including increased goal-directed activity, insomnia, grandiose ideations, flight of ideas and pressured speech. She claims her mood and appetite are good. She was awake most of the night last night and received an Ambien at around 3:35 and slept a couple more hours after that. Today, she continues to be fixated that her family is against her. She states she wants to run for president and has been asking me and multiple staff members if we will vote for her. She claims she knows billionaires and she herself is worth $2.5 million dollars. She complains of constipation and we will start senna. She continues to refuse the Geodon and L amictal. She is more willing to briefly discuss psychotropic medications today, including [place] and [place]ve[place], but then quickly changes her mind again, refuses meds and wants to wait until her court date next week. At this time patient denies any suicidal or homicidal ideations intent or plan. Denies any auditory or visual hallucinations. MENTAL STATUS EXAM: General Appearance: Patient appears to be slender female with curly hair, dressed in casual attire. Behavior: Patient is seated without any agitated behavior, but appears restless, impulsive. Speech: Patient's speech is fluent and mildly pressured. Rambling. Mood/Affect: Patient reports their mood is good, affect is congruent and constricted Suicidality/Homicidality: Patient denies having any homicidal ideation intent or plan. Denies any suicidal ideations intent or plan Perceptions: Patient denies any visual hallucinations and denies any auditory hallucinations Though content/process: Flight of ideas, grandiose ideations, wants to run for president. Memory and concentration: AOX3, grossly intact for the purposes of this session Judgment and insight: poor Assessment/Plan: Continue with current diagnosis. Patient continues to meet criteria for inpatient psychiatric admission for symptom stabilization and safety. Patient was started on Ambien 5 mg QHS PRN for insomnia, for short-term use only. Start Senna 8.6 mg daily PRN for constipation. She would benefit from a treatment order due to noncompliance. Monitor for medication compliance and for any psychotropic medication side effects. Will continue to monitor ongoing response to treatment. Encouraged participation in milieu.
[2023-09-27] MEDS: MELATONIN 5 MG TABLET PO SCH (19:49)
[2023-09-27] MEDS: traZODone HCL 50 MG TAB PO PRN (21:20)
[2023-09-28] MEDS: lamoTRIgine 25 MG TAB PO SCH ×2 (08:38→21:20)
[2023-09-28] MEDS: ZIPRASIDONE 40 MG CAP PO SCH (08:38)
--- NOTE | 2023-09-28 11:38 | P.PN ---
Progress Note - Text Progress Note Date: 09/28/23 Interval history: Patient was seen today wandering the hallways and was agreeable to seek to rebecca nicole today in the office. Patient continues to be sitting near the entrance to resume writer's office and harassing resume writer and knocking on the door several times during the day. She continues to be very argumentative with resume writer, continues to minimize her need for medications. She claims that she does not need medications, continues to plead with resume writer for discharge prematurely. She continues to be fairly grandiose and states that "I have a lot of friends" in [place] and asked resume writer if she wanted to see her bank account. He continues to be labile and intrusive, aggressive. She continues to be fairly grandiose and intrusive and is requesting a second opinion on her assessment. very poor insight and judgment. she claims that her sleep was poor last night, at this time denying any auditory or visual hallucinations. Denying any suicidal or homicidal ideations intent or plan. MENTAL STATUS EXAM: General Appearance: Patient appears to be mildly improving appearance, unkempt hair, rosenberg and black hair, stated age is alert, uncooperative/argumentative. Behavior: Patient is seated without any agitated behavior. Uncooperative. irrational. demanding. confrontational Speech: Patient's speech is fluent and nonpressured. Rambling. Mood/Affect: Patient reports their mood is depressed, affect is congruent and constricted Suicidality/Homicidality: Patient denies having any homicidal ideation intent or plan. Denies any suicidal ideations intent or plan Perceptions: Patient denies any visual hallucinations and denies any auditory hallucinations Though content/process: Illogical, grandiose thoughts, not endorsing paranoia. argumentative. hostile. Memory and concentration: AOX3, grossly intact for the purposes of this session Judgment and insight: poor IMPRESSIONS: Bipolar disorder, mixed episode with psychotic features Cannabis use disorder PLAN: -Patient is admitted under involuntary status to [facility] for stabilization of psychiatric symptoms and safety. Patient has not signed adult voluntary form and medication consent and is placed in patient's chart. -Medications : increase trazodone 100 mg when necessary for sleep. melatonin for sleep. decrease geodon and lamictal 25 mg 2 times a day for mood stabilization. patient is refusing medications at this time. -Ativan and Haldol PRN for agitation/aggression -NRT - not needed as patient does not smoke -SW on board for discharge planning. Encourage patient to participate in groups to work on coping skills. patient deferred with the trial attorney however now patient is refusing treatment/meds, awaiting hearing date set for thursday.
[2023-09-28] MEDS: MELATONIN 5 MG TABLET PO SCH (19:41)
[2023-09-28] MEDS: traZODone HCL 100 MG TAB PO PRN (19:55)
[2023-09-28] MEDS: ONDANSETRON ODT 4 MG TAB PO PRN (21:04)
[2023-09-28] MEDS: SODIUM CHLORIDE 0.65% NASAL SPRAY 44 ML BTL NASAL PRN (21:05)
[2023-09-28] MEDS: ZIPRASIDONE 20 MG CAP PO SCH (21:20)
[2023-09-29] MEDS: ASPIRIN-ACET-CAFF 250-250-65MG 1 EACH TAB PO PRN (07:58)
[2023-09-29] MEDS: ZIPRASIDONE 20 MG CAP PO SCH ×2 (08:00→21:18)
[2023-09-29] MEDS: lamoTRIgine 25 MG TAB PO SCH ×2 (08:00→21:18)
--- NOTE | 2023-09-29 11:39 | P.PN ---
Progress Note - Text Progress Note Date: 09/29/23 Interval history: Patient was seen today wandering the hallways and was agreeable to seek to rebecca nicole today in the office. Patient states that she did not need a video control engineer today and agreeable to speak alone in the office. Today she appears to be less hostile with press writer, continues to be somewhat pressured in her speech, difficult to redirect at times. Continues to be refusing Lamictal and Geodon. She took trazodone last night and the melatonin however states that she was not able to sleep well. She was fairly focused on court tomorrow and asked press writer to explain more about the process and the potential court order. She continues to have poor insight into her condition and believes that her friends in [place] will call her in uber tomorrow once she is discharged from the hospital. She continues to be fairly grandiose and intrusive and is requesting a second opinion on her assessment. poor insight and judgment. she claims that her sleep was poor last night, at this time denying any auditory or visual hallucinations. Denying any suicidal or homicidal ideations intent or plan. MENTAL STATUS EXAM: General Appearance: Patient appears to be mildly improving appearance, unkempt hair, rosenberg and black hair, stated age is alert, uncooperative/argumentative. Behavior: Patient is seated without any agitated behavior. Uncooperative. irrational. demanding. mildly improving Speech: Patient's speech is fluent and nonpressured. Rambling. Mood/Affect: Patient reports their mood is depressed, affect is congruent and constricted Suicidality/Homicidality: Patient denies having any homicidal ideation intent or plan. Denies any suicidal ideations intent or plan Perceptions: Patient denies any visual hallucinations and denies any auditory hallucinations Though content/process: Illogical, grandiose thoughts, not endorsing paranoia. less argumentative and hostile today Memory and concentration: AOX3, grossly intact for the purposes of this session Judgment and insight: poor IMPRESSIONS: Bipolar disorder, mixed episode with psychotic features Cannabis use disorder PLAN: -Patient is admitted under involuntary status to [facility] for stabilization of psychiatric symptoms and safety. Patient has not signed adult voluntary form and medication consent and is placed in patient's chart. -Medications : trazodone 100 mg when necessary for sleep. melatonin for sleep. geodon BID and lamictal 25 mg 2 times a day for mood stabilization. patient is refusing medications at this time. -Ativan and Haldol PRN for agitation/aggression -NRT - not needed as patient does not smoke -SW on board for discharge planning. Encourage patient to participate in groups to work on coping skills. patient deferred with the trust and estates attorney however now patient is refusing treatment/meds, awaiting hearing date set for thursday.
[2023-09-30] MEDS: MELATONIN 5 MG TABLET PO SCH ×2 (02:30→20:19)
[2023-09-30] MEDS: lamoTRIgine 25 MG TAB PO SCH ×3 (09:01→20:19)
[2023-09-30] MEDS: ZIPRASIDONE 20 MG CAP PO SCH ×3 (09:01→20:19)
--- NOTE | 2023-09-30 11:55 | P.PN ---
Progress Note - Text Progress Note Date: 09/30/23 Interval history: Patient was seen today in the hallways, , she was approached by bond writer to speak with her today. Patient refused to speak to bond writer and continues to ramble and be tangential and argumentative with bond writer. She states that she wanted an independent evaluation and does not want to speak to bond writer. She continues to refuse medications. MENTAL STATUS EXAM: General Appearance: Patient appears to be mildly improving appearance, unkempt hair, rosenberg and black hair, stated age is alert, uncooperative/argumentative. Behavior: Patient is seated without any agitated behavior. Uncooperative. Speech: Patient's speech is fluent and nonpressured. Rambling. Mood/Affect: Unable to assess Suicidality/Homicidality: Unable to assess Perceptions: Unable to assess Though content/process: Illogical, grandiose thoughts, not endorsing paranoia.argumentative Memory and concentration: Unable to assess Judgment and insight: poor IMPRESSIONS: Bipolar disorder, mixed episode with psychotic features Cannabis use disorder PLAN: -Patient is admitted under involuntary status to [facility] for stabilization of psychiatric symptoms and safety. Patient has not signed adult voluntary form and medication consent and is placed in patient's chart. -Medications : trazodone 100 mg when necessary for sleep. melatonin for sleep. geodon BID and lamictal 25 mg 2 times a day for mood stabilization. patient is refusing medications at this time. -Ativan and Haldol PRN for agitation/aggression -NRT - not needed as patient does not smoke -SW on board for discharge planning. Encourage patient to participate in groups to work on coping skills. patient deferred with the tax associate attorney however now patient is refusing treatment/meds, patient requested an independent evaluation.
[2023-09-30 21:41] LABS: Appearance,Urine Clear (Clear); Bilirubin,Urine Negative (Negative); Blood,Urine Negative (Negative); Color,Urine Colorless; Glucose,Urine (UA) Negative (Negative); Ketones,Urine Trace (Negative); Leukocyte Esterase,Urine Negative (Negative); Nitrite,Urine Negative (Negative); PH, Urine 5.5 (5.0-8.0); Protein,Urine Negative (Negative); Specific Gravity,Urine 1.008 (1.001-1.035); Urobilinogen,Urine <2.0 mg/dL (<2.0)
[2023-10-01] MEDS: traZODone HCL 100 MG TAB PO PRN ×2 (02:15→20:10)
[2023-10-01] MEDS: ACETAMINOPHEN TAB 325 MG TAB PO PRN (02:16)
[2023-10-01] MEDS: lamoTRIgine 25 MG TAB PO SCH ×3 (08:37→20:10)
[2023-10-01] MEDS: ZIPRASIDONE 20 MG CAP PO SCH (08:37)
--- NOTE | 2023-10-01 15:07 | P.PN ---
Progress Note - Text Progress Note Date: 10/01/23 Interval history: Patient was seen today in the hallways, she was agreeable to speak to life insurance underwriter nikki trevino. She continues to be fairly hyperverbal, tangential/circumstantial. She was mildly less argumentative today with her. States that she started taking medications yesterday. She states that "I still can't sleep" and states that she is only getting about 1 or 2 hours of rest. States that her mind is racing at nighttime. She continues to have a flight of ideas and talked about different things in her life and also what she is going to do today. He continues to focus on getting a second opinion. At this time she is denying any suicidal or homicidal ideations intent or plan. Denying any auditory or visual hallucinations. MENTAL STATUS EXAM: General Appearance: Patient appears to be mildly improving appearance, unkempt hair, rosenberg and black hair, stated age is alert, less argumentative. Behavior: Patient is seated without any agitated behavior. less Uncooperative. Speech: Patient's speech is fluent and pressured. Rambling. Mood/Affect: She claims that her mood is "not good" affect is labile. Suicidality/Homicidality: Denies Perceptions: Denies Though content/process: More logical today, grandiose thoughts, not endorsing paranoia. less argumentative. Tangential/circumstantial. Memory and concentration: Alert and oriented 3. Judgment and insight: poor, improving moderately IMPRESSIONS: Bipolar disorder, mixed episode with psychotic features Cannabis use disorder PLAN: -Patient is admitted under involuntary status to [facility] for stabilization of psychiatric symptoms and safety. Patient has not signed adult voluntary form and medication consent and is placed in patient's chart. -Medications : trazodone 100 mg when necessary for sleep. melatonin for sleep. increase geodon 40 mg BID for mood stabilization and increase lamictal 25 mg 3 times a day for mood stabilization. added doxepin 10 mg qhs for sleep -Ativan and Haldol PRN for agitation/aggression -NRT - not needed as patient does not smoke -SW on board for discharge planning. Encourage patient to participate in groups to work on coping skills. patient deferred with the farm machinery assembler however now patient is refusing treatment/meds, patient requested an independent evaluation.
[2023-10-01] MEDS ORDERED: ZIPRASIDONE 20 MG CAP PO ONE (21:00)
[2023-10-01] MEDS ORDERED: DOXEPIN 10 MG CAP PO SCH (21:00)
[2023-10-01] MEDS: SODIUM CHLORIDE 0.65% NASAL SPRAY 44 ML BTL NASAL PRN (21:47)
[2023-10-02] MEDS: MELATONIN 5 MG TABLET PO SCH ×2 (04:54→21:13)
[2023-10-02] MEDS: lamoTRIgine 25 MG TAB PO SCH ×2 (09:11→21:13)
[2023-10-02] MEDS: ZIPRASIDONE 40 MG CAP PO SCH ×2 (09:12→21:13)
--- NOTE | 2023-10-02 09:50 | P.PN ---
Progress Note - Text Progress Note Date: 10/02/23 Interval history: Patient was seen today in the hallways, she was agreeable to speak to junior underwriter inkki trevino. She continues to be fairly hyperverbal, tangential/circumstantial and noticed that writers januaryer is from [place]. She began speaking about [place] and was rambling tangential, had loose associations. She spoke about visiting [place] multiple times. She also claims that she may have "autism" and states that does make your senses increase". She paced around the room several times and continues to be fairly hyperverbal and mildly less argumentative today. Claims that she was able to sleep a bit better last night about 4 or 5 hours, we spoke about increasing the nighttime medication but she is okay with. She continues to have a flight of ideas and talked about different things in her life and also what she is going to do today. Patient did not take the Geodon this morning. sHe continues to focus on getting a second opinion. At this time she is denying any suicidal or homicidal ideations intent or plan. Denying any auditory or visual hallucinations. MENTAL STATUS EXAM: General Appearance: Patient appears to be mildly improving appearance, unkempt hair, rosenberg and black hair, stated age is alert, less argumentative. Behavior: Patient is seated without any agitated behavior. less Uncooperative. Speech: Patient's speech is fluent and pressured. Rambling. Mood/Affect: She claims that her mood is "ok" affect is labile. Suicidality/Homicidality: Denies Perceptions: Denies Though content/process: More logical today, grandiose thoughts, not endorsing paranoia.flight of ideas. Tangential/circumstantial. Memory and concentration: Alert and oriented 3. Judgment and insight: poor IMPRESSIONS: Bipolar disorder, mixed episode with psychotic features Cannabis use disorder PLAN: -Patient is admitted under involuntary status to [facility] for stabilization of psychiatric symptoms and safety. Patient has not signed adult voluntary form and medication consent and is placed in patient's chart. -Medications : trazodone 100 mg when necessary for sleep. melatonin for sleep. continue geodon 40 mg BID for mood stabilization and increase lamictal 50 mg 2 times a day for mood stabilization. increase doxepin 20 mg qhs for sleep -Ativan and Haldol PRN for agitation/aggression -NRT - not needed as patient does not smoke -SW on board for discharge planning. Encourage patient to participate in groups to work on coping skills. patient deferred with the stone unloader however now patient is refusing treatment/meds, patient requested an independent evaluation and currently awaiting this.
[2023-10-02] MEDS: haloperidoL 5 MG TAB PO PRN (16:38)
[2023-10-02] MEDS: LORazepam 1 MG TAB PO PRN (16:38)
[2023-10-02] MEDS: MAGNESIUM HYDROXIDE 2,400 MG/30 ML CUP PO PRN (17:59)
[2023-10-02] MEDS: DOXEPIN 10 MG CAP PO SCH (21:14)
[2023-10-03] MEDS: LORazepam 1 MG TAB PO PRN ×2 (06:47→17:05)
[2023-10-03] MEDS: ZIPRASIDONE 40 MG CAP PO SCH ×2 (10:24→20:34)
[2023-10-03] MEDS: lamoTRIgine 25 MG TAB PO SCH ×2 (10:24→20:34)
[2023-10-03] MEDS: haloperidoL 5 MG TAB PO PRN ×2 (10:41→17:05)
--- NOTE | 2023-10-03 15:15 | P.PN ---
Progress Note - Text Progress Note Date: 10/03/23 Interval history: The patient has been evaluated today for an established follow-up visit, sylvia mcarthur for The chart has been reviewed, medication reconciliation completed, and the case has been discussed with the nursing staff. The patient was seen while she was sitting on her bed. The patient has not been participating in group activities and other unit programs. The patient reports fair sleep and appetite. The patient has not been fully compliant with psychiatric medication. The patient was bizarre in her speech, and it was hyper verbal and tangential. She reported that she is from the [facility], and she only takes marijuana to manage her psychiatric symptoms. She requested to be prescribed some marijuana products. The patient was not taking her psychiatric medications as per nursing staff. She reports waiting for second opinion because she disagrees with the psychiatric evaluation by the psychiatrist at this unit. She was very superficial and evasive answering questions about her mood and psychiatric symptoms. She denies suicidal homicidal ideation. The patient reports sometimes hallucinating but not for the past 2-3 days. She states that I had thoughts to hurt myself but not today. Mental Status Examination: Appearance: Appears stated age, partially disheveled, average body built, and no specific features. Gait/ posture: Steady gait, normal arm swinging, no abnormal movements. Attitude and Behavior: Not Engaged, superficially cooperative, unable to maintain fair eye contact during course of interview. Motor Activity: Increased psychomotor agitation or retardation. Speech: Increased rate, rhythm, normal articulation. Pressured. Mood: " Fine Affect: labile, not appropriate to context and situation. Thought form: Tangential, circumstantial Thought content: Not Logical, denies suicidal / homicidal thoughts, intentions, or plans. Perception: Denies any auditory/ visual or tactile hallucinations. Attention: No impairment. Orientation: Oriented to time, place, person, and situation. Insight & Judgment: Limited Impulse control: Limited Assessment and Diagnosis: Bipolar disorder, mixed episode with psychotic features Cannabis use disorder Plan: Continue inpatient psychiatric hospitalization. The patient continues to meet the criteria for inpatient psychiatric hospitalization, including: current jw with disorganized thoughts. The patient has been admitted involuntary to the inpatient unit Continue routine monitoring, including suicide and elopement precautions. Check every 15 minutes. Educate and encourage the patient to attend groups and other therapeutic activities. Consult the medical team if any acute medical emergency arises. Continue current psychiatric medications, including: Trazodone 100 mg when necessary for sleep. Melatonin for sleep. Geodon 40 mg BID for mood stabilization Lamictal 50 mg 2 times a day for mood stabilization. Doxepin 20 mg qhs for sleep Continue PRN psychiatric medications, including: -Ativan and Haldol PRN for agitation/aggression -NRT - not needed as patient does not smoke Continue non-psychiatric medications as per the medical team's recommendations. Continue discharge planning as per social service and the primary psychiatric team's recommendations.
[2023-10-03] MEDS: DOXEPIN 10 MG CAP PO SCH (20:33)
[2023-10-03] MEDS: MELATONIN 5 MG TABLET PO SCH (20:34)
[2023-10-04] MEDS: SENNOSIDES 8.6 MG TAB PO PRN (05:38)
[2023-10-04] MEDS: lamoTRIgine 25 MG TAB PO SCH ×2 (07:35→20:32)
[2023-10-04] MEDS: ZIPRASIDONE 40 MG CAP PO SCH ×2 (07:35→20:34)
[2023-10-04] MEDS: haloperidoL 5 MG TAB PO PRN (07:36)
[2023-10-04] MEDS: DOXEPIN 10 MG CAP PO SCH (20:33)
[2023-10-04] MEDS: MELATONIN 5 MG TABLET PO SCH (20:34)
--- NOTE | 2023-10-04 22:03 | P.PN ---
Progress Note - Text Progress Note Date: 10/04/23 Interval history: The patient has been evaluated today for an established follow-up visit, sylvia mcarthur for The chart has been reviewed, medication reconciliation completed, and the case has been discussed with the nursing staff. The patient was seen while she was sitting on her bed. The patient was irritable today and she was talking about of outpatient yelling at her and calling her names. The patient stated "other patient is calling me names." I discussed was nursing staff to keep monitoring both patient's. No behavioral problems have been reported, and nursing staff will isolate between the 2 patients. Meenakshi mentioned that she will have ear plugs to ignore what the other patient stays about her. Meenakshi presents today irritable, and to some degree tangential. She was superficially answering questions about her mood and denies suicidal or homicidal ideation. She reports fair sleep and appetite. The patient has not been fully compliant with psychiatric medication. Mental Status Examination: Appearance: Appears stated age, partially disheveled, average body built, and no specific features. Gait/ posture: Steady gait, normal arm swinging, no abnormal movements. Attitude and Behavior: Not Engaged, superficially cooperative, unable to maintain fair eye contact during course of interview. Motor Activity: Increased psychomotor agitation or retardation. Speech: Increased rate, rhythm, normal articulation. Pressured. Mood: " irritable" Affect: labile, not appropriate to context and situation. Thought form: Tangential, circumstantial Thought content: Not Logical, denies suicidal / homicidal thoughts, intentions, or plans. Perception: Denies any auditory/ visual or tactile hallucinations. Attention: No impairment. Orientation: Oriented to time, place, person, and situation. Insight & Judgment: Limited Impulse control: Limited Assessment and Diagnosis: Bipolar disorder, mixed episode with psychotic features Cannabis use disorder Plan: Continue inpatient psychiatric hospitalization. The patient continues to meet the criteria for inpatient psychiatric hospitalization, including: current jw with disorganized thoughts. The patient has been admitted involuntary to the inpatient unit Continue routine monitoring, including suicide and elopement precautions. Check every 15 minutes. Educate and encourage the patient to attend groups and other therapeutic activities. Consult the medical team if any acute medical emergency arises. Continue current psychiatric medications, including: The patient has not been taking her psych medications. Trazodone 100 mg when necessary for sleep. Melatonin for sleep. Geodon 40 mg BID for mood stabilization Lamictal 50 mg 2 times a day for mood stabilization. Doxepin 20 mg qhs for sleep Continue PRN psychiatric medications, including: -Ativan and Haldol PRN for agitation/aggression -NRT - not needed as patient does not smoke Continue non-psychiatric medications as per the medical team's recommendations. Continue discharge planning as per social service and the primary psychiatric team's recommendations.
[2023-10-05] MEDS: ACETAMINOPHEN TAB 325 MG TAB PO PRN (07:45)
[2023-10-05] MEDS: ASPIRIN-ACET-CAFF 250-250-65MG 1 EACH TAB PO PRN (08:14)
[2023-10-05] MEDS: ZIPRASIDONE 40 MG CAP PO SCH (10:39)
[2023-10-05] MEDS: lamoTRIgine 25 MG TAB PO SCH ×2 (10:39→20:05)
--- NOTE | 2023-10-05 10:59 | P.PN ---
Progress Note - Text Progress Note Date: 10/05/23 Interval history: Patient was seen today in the hallways, she was agreeable to speak to commercial loan underwriter nikki trevino. Patient continues to be pacing the hallways. She continues to be fairly hyperverbal, tangential/circumstantial today. Continues to ramble at times and pace the commercial loan underwriter's room and office. She continues to be hard to redirect during conversation. She wants her "medication dialed down". She believes that the medications are too sedating for her. She has not been consistently taking her medications. States that she is sleeping about 5 or 6 hours at nighttime. Continues to be defiant at times and intrusive. Patient did not take the Geodon this morning. She claims the independent evaluation 1 well. At this time she is denying any suicidal or homicidal ideations intent or plan. Denying any auditory or visual hallucinations. MENTAL STATUS EXAM: General Appearance: Patient appears to be mildly improving appearance, unkempt hair, rosenberg and black hair, stated age is alert, less argumentative. Behavior: Patient is seated without any agitated behavior. less Uncooperative. Speech: Patient's speech is fluent and pressured. Rambling. Mood/Affect: She claims that her mood is "tired" affect is labile, improving mildly Suicidality/Homicidality: Denies Perceptions: Denies Though content/process: More logical today, grandiose thoughts, not endorsing paranoia.flight of ideas. Tangential/circumstantial. Memory and concentration: Alert and oriented 3. Judgment and insight: poor IMPRESSIONS: Bipolar disorder, mixed episode with psychotic features Cannabis use disorder PLAN: -Patient is admitted under involuntary status to [facility] for stabilization of psychiatric symptoms and safety. Patient has not signed adult voluntary form and medication consent and is placed in patient's chart. -Medications : trazodone 100 mg when necessary for sleep. melatonin for sleep. discontinue geodon and replace wirh abilify po 5 mg daily for mood stabilization and continue lamictal 50 mg 2 times a day for mood stabilization. increase doxepin 25 mg qhs for sleep -Ativan and Haldol PRN for agitation/aggression -NRT - not needed as patient does not smoke -SW on board for discharge planning. Encourage patient to participate in groups to work on coping skills. patient deferred with the patent prosecution attorney however now patient is refusing treatment/meds, patient requested an independent evaluation, this was completed on 10/02, upcoming hearing date scheudled for 10/07.
[2023-10-05] MEDS: ARIPiprazole 5 MG TAB PO SCH (11:19)
[2023-10-05] MEDS: LORazepam 1 MG TAB PO PRN (17:23)
[2023-10-05] MEDS: haloperidoL 5 MG TAB PO PRN (17:23)
[2023-10-05] MEDS: MELATONIN 5 MG TABLET PO SCH (20:05)
[2023-10-05] MEDS: DOXEPIN 25 MG CAP PO SCH (20:05)
[2023-10-06] MEDS: traZODone HCL 100 MG TAB PO PRN (02:49)
[2023-10-06] MEDS: ARIPiprazole 5 MG TAB PO SCH (08:35)
[2023-10-06] MEDS: lamoTRIgine 25 MG TAB PO SCH ×2 (08:35→19:46)
[2023-10-06] MEDS: ASPIRIN-ACET-CAFF 250-250-65MG 1 EACH TAB PO PRN ×2 (10:05→15:59)
--- NOTE | 2023-10-06 12:26 | P.PN ---
Progress Note - Text Progress Note Date: 10/06/23 Interval history: Patient was seen today in the hallways, she was agreeable to speak to ad writer nikki trevino. Patient continues to be pacing the hallways and sitting on the floor near the nurses desk. she continues to have a flight of ideas, however this improving mildly. she continues to be fairly hyperverbal, tangential/circumstantial today. Continues to ramble at times and spoke about her family being from [place] and spoke about the laws in [place], she also continues to speak about ad writer being f [facility] and about loss. She continues to be hard to redirect during conversation over showing mild improvement. She wants her "medication dialed down" once again. States that she is sleeping about 5 or 6 hours at nighttime. He is less intrusive today. She states that she has her court hearing tomorrow morning. At this time she is denying any suicidal or homicidal ideations intent or plan. Denying any auditory or visual hallucinations. MENTAL STATUS EXAM: General Appearance: Patient appears to be mildly improving appearance, rosenberg and black hair, stated age is alert, less argumentative. Behavior: Patient is seated without any agitated behavior. Mildly more cooperative, difficult to redirect. Speech: Patient's speech is fluent and pressured. Rambling. Mood/Affect: She claims that her mood is "same" affect is labile, improving mildly Suicidality/Homicidality: Denies Perceptions: Denies Though content/process: More logical today, grandiose thoughts, not endorsing paranoia. flight of ideas. Tangential/circumstantial, mildly improving Memory and concentration: Alert and oriented 3. Judgment and insight: poor, improving mildly IMPRESSIONS: Bipolar disorder, mixed episode with psychotic features Cannabis use disorder PLAN: -Patient is admitted under involuntary status to [facility]HU for stabilization of psychiatric symptoms and safety. Patient has not signed adult voluntary form and medication consent and is placed in patient's chart. -Medications : trazodone 100 mg when necessary for sleep. melatonin for sleep. increase abilify po 7.5 mg daily for mood stabilization and continue lamictal 50 mg 2 times a day for mood stabilization. doxepin 25 mg qhs for sleep -Ativan and Haldol PRN for agitation/aggression -NRT - not needed as patient does not smoke -SW on board for discharge planning. Encourage patient to participate in groups to work on coping skills. patient deferred with the chemistry manager however now patient is refusing treatment/meds, patient requested an independent evaluation, this was completed on 10/02, upcoming hearing date scheudled for 10/07.
[2023-10-06] MEDS ORDERED: ARIPiprazole 5 MG TAB PO ONE (12:30)
[2023-10-06] MEDS: MELATONIN 5 MG TABLET PO SCH (19:46)
[2023-10-06] MEDS: DOXEPIN 25 MG CAP PO SCH (19:47)
[2023-10-07] MEDS: ASPIRIN-ACET-CAFF 250-250-65MG 1 EACH TAB PO PRN (05:36)
[2023-10-07] MEDS: lamoTRIgine 25 MG TAB PO SCH ×3 (07:55→19:55)
[2023-10-07] MEDS: LORazepam 1 MG TAB PO PRN (08:51)
[2023-10-07] MEDS ORDERED: ARIPiprazole 15 MG TAB PO SCH (09:00)
--- NOTE | 2023-10-07 09:38 | P.PN ---
Progress Note - Text Progress Note Date: 10/07/23 Interval history: Patient was seen today in the hallways, she was agreeable to speak to customs entry writer nikki trevino. Patient was waiting for her court hearing to commands. She was comparing the court system in [place] to the one in [place]. She continues to state that the Abilify has been helping her and want to continue taking it. She did not take the Lamictal this morning however did not give a good reason why and did not express any side effects. She continues to be tangential, less pacing, more directable today. showing mild improvement. She wants her "medication dialed down" once again. States that she is sleeping about 6 hours at nighttime. sHe is less intrusive today. She states that she has her court hearing tomorrow morning. At this time she is denying any suicidal or homicidal ideations intent or plan. Denying any auditory or visual hallucinations. MENTAL STATUS EXAM: General Appearance: Patient appears to be mildly improving appearance, rosenberg and black hair, stated age is alert, less argumentative. Behavior: Patient is seated without any agitated behavior. Mildly more cooperative, directable today. Speech: Patient's speech is fluent and pressured. Rambling. Mood/Affect: She claims that her mood is "better" affect is labile, improving mildly Suicidality/Homicidality: Denies Perceptions: Denies Though content/process: More logical today, not endorsing paranoia. flight of ideas. Tangential/circumstantial, mildly improving Memory and concentration: Alert and oriented 3. Judgment and insight: poor, improving mildly IMPRESSIONS: Bipolar disorder, mixed episode with psychotic features Cannabis use disorder PLAN: -Patient is admitted under involuntary status to [facility]HU for stabilization of psychiatric symptoms and safety. Patient has not signed adult voluntary form and medication consent and is placed in patient's chart. -Medications : trazodone 100 mg when necessary for sleep. melatonin for sleep. increase abilify po 10 mg daily for mood stabilization and continue lamictal 50 mg 2 times a day for mood stabilization. doxepin 25 mg qhs for sleep -Ativan and Haldol PRN for agitation/aggression -NRT - not needed as patient does not smoke -SW on board for discharge planning. Encourage patient to participate in groups to work on coping skills. patient deferred with the attorney recruiter however now patient is refusing treatment/meds, patient requested an independent evaluation, this was completed on 10/02, hearing date is will take place today.
[2023-10-07] MEDS: haloperidoL 5 MG TAB PO PRN (09:58)
[2023-10-07] MEDS: DOXEPIN 25 MG CAP PO SCH (19:55)
[2023-10-08] MEDS: MELATONIN 5 MG TABLET PO SCH ×2 (00:04→20:43)
[2023-10-08] MEDS: MAG HYDROX/AL HYDROX/SIMETH 30 ML CUP PO PRN (05:40)
[2023-10-08] MEDS: SENNOSIDES 8.6 MG TAB PO PRN (05:40)
[2023-10-08] MEDS: ASPIRIN-ACET-CAFF 250-250-65MG 1 EACH TAB PO PRN ×2 (07:35→12:26)
[2023-10-08] MEDS ORDERED: ARIPiprazole 10 MG TAB PO SCH (09:00)
[2023-10-08] MEDS: lamoTRIgine 25 MG TAB PO SCH (09:00)
[2023-10-08] MEDS ORDERED: ARIPiprazole IM SYRINGE 400 MG (NO CHARGE) PHARMACY STOCK IM ONE (10:17)
[2023-10-08] MEDS ORDERED: ARIPiprazole 5 MG TAB PO ONE (10:19)
--- NOTE | 2023-10-08 10:23 | P.PN ---
Progress Note - Text Progress Note Date: 10/08/23 Interval history: Patient was seen today in the hallways, she was agreeable to speak to keno writer / runner nikki trevino. Patient claims that she does not want to take the long-acting injection today. She reflected book on getting an injection when she came into the hospital. She would rather continue her treatment on an [facility]. She proceeded to speak about her and her being on bad terms and does not know if she wants to remain with him. She was somewhat argumentative about the injection today and keno writer / runner spoke about the court order and the importance of compliance with the medications. less pacing, more directable today. showing mild improvement. States that she was able to sleep much better last night. He did not take trazodone as needed. sHe is less intrusive today. At this time she is denying any suicidal or homicidal ideations intent or plan. Denying any auditory or visual hallucinations. MENTAL STATUS EXAM: General Appearance: Patient appears to be mildly improving appearance, rosenberg and black hair, stated age is alert, less argumentative. Behavior: Patient is seated without any agitated behavior. Mildly more cooperative, directable today. Speech: Patient's speech is fluent and pressured. Rambling. Mood/Affect: She claims that her mood is "fine" affect is improving mildly Suicidality/Homicidality: Denies Perceptions: Denies Though content/process: More logical today, not endorsing paranoia. More goal oriented today, mildly improving Memory and concentration: Alert and oriented 3. Judgment and insight: chronically poor, improving mildly IMPRESSIONS: Bipolar disorder, mixed episode with psychotic features Cannabis use disorder PLAN: -Patient is admitted under involuntary status to MHU for stabilization of psychiatric symptoms and safety. Patient has not signed adult voluntary form and medication consent and is placed in patient's chart. -Medications : trazodone 100 mg when necessary for sleep. melatonin for sleep. increase abilify po 15 mg daily for mood stabilization, abilify Maintenna 400 mg IM today to ensure compliance. change lamictal 100 mg a day for mood stabilization. doxepin 25 mg qhs for sleep -Ativan and Haldol PRN for agitation/aggression -NRT - not needed as patient does not smoke -SW on board for discharge planning. Encourage patient to participate in groups to work on coping skills. patient deferred with the contract attorney however now patient is refusing treatment/meds, patient requested an independent evaluation, this was completed on 10/02, patient received/consented to a treatment order on 10/07. WIll transition patient onto [facility] today and prepare for d/c within the next couple of days.
[2023-10-08] MEDS: ACETAMINOPHEN TAB 325 MG TAB PO PRN (18:43)
[2023-10-08] MEDS: lamoTRIgine 100 MG TAB PO SCH (20:43)
[2023-10-08] MEDS: DOXEPIN 25 MG CAP PO SCH (20:43)
[2023-10-09] MEDS: ACETAMINOPHEN TAB 325 MG TAB PO PRN ×2 (01:21→17:49)
[2023-10-09] MEDS ORDERED: ARIPiprazole 15 MG TAB PO SCH (09:00)
[2023-10-09] MEDS: ASPIRIN-ACET-CAFF 250-250-65MG 1 EACH TAB PO PRN (11:40)
[2023-10-09] MEDS ORDERED: DOXEPIN 25 MG CAP PO PRN (12:19)
--- NOTE | 2023-10-09 12:19 | P.PN ---
Progress Note - Text Progress Note Date: 10/09/23 Interval history: Patient was seen today in the hallways, she was agreeable to speak to magnetic tape typewriter operator nikki trevino. Patient was initially cooperatibe with magnetic tape typewriter operator however was fairly discharged focused. she beleives that the medications have been helping and has taken the abilify [facility]. she continues to have rapid speech however is more directable today during coversation. she states that she continues to want to spend time in the [place] and continues to focus conversation on thc and marijuana. she claims that she is not getting along with another patient on the unit. she states that she did not sleep well last night. He did not take trazodone as needed last night. sHe is less intrusive today. At this time she is denying any suicidal or homicidal ideations intent or plan. Denying any auditory or visual hallucinations. MENTAL STATUS EXAM: General Appearance: Patient appears to be mildly improving appearance, rosenberg and black hair, stated age is alert, less argumentative. Behavior: Patient is seated without any agitated behavior. Mildly more cooperative, directable today. Speech: Patient's speech is fluent and pressured. Rambling. Mood/Affect: She claims that her mood is "ok" affect is improving mildly Suicidality/Homicidality: Denies Perceptions: Denies Though content/process: More logical today, not endorsing paranoia. More goal oriented today, mildly improving Memory and concentration: Alert and oriented 3. Judgment and insight: chronically poor, improving mildly IMPRESSIONS: Bipolar disorder, mixed episode with psychotic features Cannabis use disorder PLAN: -Patient is admitted under involuntary status to MHU for stabilization of psychiatric symptoms and safety. Patient has not signed adult voluntary form and medication consent and is placed in patient's chart. -Medications : trazodone 100 mg when necessary for sleep. melatonin for sleep. continue abilify po 15 mg daily for mood stabilization consider increasing over the weekend if needed, abilify Maintenna 400 mg IM on 10/08 and next dose will be due on 11/05 to ensure compliance. continue lamictal 100 mg a day for mood stabilization. doxepin 25 mg qhs for sleep, added doxepin prn for sleep. -Ativan and Haldol PRN for agitation/aggression -NRT - not needed as patient does not smoke -SW on board for discharge planning. Encourage patient to participate in groups to work on coping skills. patient deferred with the grip assembler however now patient is refusing treatment/meds, patient requested an independent evaluation, this was completed on 10/02, patient received/consented to a MH treatment order on 10/07. patient receved [facility] on 10/08 and spoke with sister over the phone and due to the high risk that patient will smoke marijuana upon discharge and high risk of rehospitalization, will allow [facility] more time and continue on with PO meds and observe over the weekend and hopeful plan for thursday if patient is doing well.
[2023-10-09] MEDS: SODIUM CHLORIDE 0.65% NASAL SPRAY 44 ML BTL NASAL PRN (17:48)
[2023-10-09] MEDS: MAG HYDROX/AL HYDROX/SIMETH 30 ML CUP PO PRN (19:43)
[2023-10-09] MEDS: lamoTRIgine 100 MG TAB PO SCH (19:51)
[2023-10-09] MEDS: MELATONIN 5 MG TABLET PO SCH (19:51)
[2023-10-09] MEDS: DOXEPIN 25 MG CAP PO SCH (19:51)
[2023-10-09] MEDS: LORazepam 1 MG TAB PO PRN (21:38)
--- NOTE | 2023-10-10 08:23 | P.PN ---
Subjective Progress Note Date: 10/10/23 Principal diagnosis: Bipolar I with psychosis (probably from excess THC use) Akathesia from Abilify Patient was seen today in the hallways, she came readily to speak to account underwriter michael crouch. Patient was cooperative with no pressured speech. She did claim to have trouble sleeping even though she has a little bit of doxepin or melatonin. But she did not take trazodone as needed last night. At this time she is denying any suicidal or homicidal ideations intent or plan. Denying any auditory or visual hallucinations. MENTAL STATUS EXAM: General Appearance: Patient appears to have reasonable self-care rosenberg and black hair, stated age is alert, less argumentative. Behavior: Patient is seated without any agitated behavior. Cooperative and directable Speech: Patient's speech is fluent she seemed to stay on topic although she did review her explanations for why she had trouble when she came in the hospital Mood/Affect: She claims that her mood is "ok" affect calm and not depressed or agitated Suicidality/Homicidality: Denies Perceptions: Denies Though content/process: logical today, not endorsing paranoia. goal oriented Memory and concentration: Alert and oriented 3. Judgment and insight: Has a logical explanation of why she was doing so poorly not sure she is going to change that I strongly urged her to do some reading on bipolar and talk to her family and friends to see if she can come to agreement as to what she is dealing with IMPRESSIONS: Bipolar disorder, mixed episode with psychotic features Cannabis use disorder PLAN: -Patient is admitted under involuntary status to MHU for stabilization of psychiatric symptoms and safety. Patient has not signed adult voluntary form and medication consent and is placed in patient's chart. -Medications : I strongly urged her to take the trazodone 100 mg when necessary for sleep, pointing out that it is not addicting does not get tolerant and should not make her tired the next day. She is going to continue the melatonin for sleep. She had a shot of abilify Maintenna 400 mg IM on 10/08 and next dose will be due on 11/05 to ensure compliance. My concern is she seems to have developed akathisia in both legs. Courses that's from the Abilify will clear delusions shot because. I'm concerned about her being on Lamictal 100 so quickly she has not been on it for more than about 2-3 weeks he should be at 50 she is complaining of itching on her arms and legs. So I am going to hold one dose and then cut back to 50 continue lamictal 100 mg a day for mood stabilization. Discontinue doxepin 25 mg qhs for sleep, I think if the gabapentin gives her some relief from akathisia taking that with the trazodone s he should sleep fine. -Ativan and Haldol PRN for agitation/aggression -NRT - not needed as patient does not smoke -SW on board for discharge planning. Encourage patient to participate in groups to work on coping skills. patient deferred with the business attorney however now patient is refusing treatment/meds, patient requested an independent evaluation, this was completed on 10/02, patient received/consented to a treatment order on 10/07. patient receved [facility] on 10/08 and spoke with sister over the phone and due to the high risk that patient will smoke marijuana upon discharge and high risk of rehospitalization, will allow [facility] more time and continue on with PO meds and observe over the weekend and hopeful plan for thursday if patient is doing well. Objective - Vital Signs Vital signs: Vital Signs Temp 97.6 F 10/09/23 01:03 Pulse 84 10/10/23 07:02 Resp 18 10/10/23 07:02 BP 96/61 10/10/23 07:02 Pulse Ox 99 10/08/23 07:02 FiO2 - Labs CBC & Chem 7: 09/19/23 09:43 09/19/23 09:43
[2023-10-10] MEDS: GABAPENTIN 100 MG CAP PO PRN ×3 (08:59→22:23)
[2023-10-10] MEDS: ASPIRIN-ACET-CAFF 250-250-65MG 1 EACH TAB PO PRN (09:35)
[2023-10-10] MEDS: MELATONIN 5 MG TABLET PO SCH (20:10)
[2023-10-10] MEDS: DOXEPIN 25 MG CAP PO SCH (20:10)
[2023-10-10] MEDS: ACETAMINOPHEN TAB 325 MG TAB PO PRN (23:02)
[2023-10-11] MEDS: ACETAMINOPHEN TAB 325 MG TAB PO PRN (05:07)
[2023-10-11] MEDS: GABAPENTIN 100 MG CAP PO PRN ×3 (05:11→20:42)
--- NOTE | 2023-10-11 07:44 | P.PN ---
Subjective Progress Note Date: 10/11/23 Principal diagnosis: Bipolar I with psychosis (probably from excess THC use) Akathesia from Abilify Patient was seen today in the hallways, she came readily to speak to typewriter assembler michael crouch. Patient was cooperative with mild pressured speech and flight of ideas. She did claim to have trouble sleeping even though she has a little bit of doxepin and melatonin. But she did not take trazodone as needed last night even though I had reviewed it's benifits. She says that she will try it tonight. At this time she is denying any suicidal or homicidal ideations intent or plan. Denying any auditory or visual hallucinations. She says that the gabapentin has given her relief from the akathisia MENTAL STATUS EXAM: General Appearance: Patient appears to have reasonable self-care rosenberg and black hair, stated age is alert, less argumentative. Behavior: Patient is seated without any agitated behavior. Cooperative and directable Speech: Patient's speech is fluent she seemed to stay on topic although she did review her explanations for why she had trouble when she came in the hospital Mood/Affect: She claims that her mood is "ok" affect calm and not depressed or agitated Suicidality/Homicidality: Denies Perceptions: Denies Though content/process: logical today, not endorsing paranoia. goal oriented Memory and concentration: Alert and oriented 3. Judgment and insight: Has a logical explanation of why she was doing so poorly. She says that her grandpa once was forced to take the flu shot because of his job had a bad reaction so she grew up always thinking Eastern medicine and as few medicines as possible is the best way to go. IMPRESSIONS: Bipolar disorder, mixed episode with psychotic features (she does not seem to have any psychotic features at this time and they probably came from using too much THC) Cannabis use disorder PLAN: -Patient is admitted under involuntary status to MHU for stabilization of psychiatric symptoms and safety. Patient has not signed adult voluntary form and medication consent and is placed in patient's chart. -Medications : I strongly urged her to take the trazodone 100 mg when necessary for sleep, pointing out that it is not addicting does not get tolerant and should not make her tired the next day. She is going to continue the melatonin for sleep. She had a shot of abilify Maintenna 400 mg IM on 10/08 and next dose will be due on 11/05 to ensure compliance. My concern is she seems to have developed akathisia in both legs. Courses that's from the Abilorettalouise will clear delusions shot because. I stopped the Lamictal because she has not been taking the medicine on a predictable basis. Discontinue doxepin 25 mg qhs for sleep, I think if the gabapentin gives her some relief from akathisia taking that with the trazodone she should sleep fine. I still think she needs something for bipolar as she still has mild pressure and flight of ideas but is not a danger to herself or others at this point. -Ativan and Haldol PRN for agitation/aggression -NRT - not needed as patient does not smoke -SW on board for discharge planning. Encourage patient to participate in groups to work on coping skills. patient deferred with the environmental attorney however now patient is refusing treatment/meds, patient requested an independent evaluation, this was completed on 10/02, patient received/consented to a treatment order on 10/07. patient receved [facility] on 10/08 and spoke with sister over the phone and due to the high risk that patient will smoke marijuana upon discharge and high risk of rehospitalization, will allow [facility] more time and continue on with PO meds and observe over the weekend and hopeful plan for thursday if patient is doing well. Objective - Vital Signs Vital signs: Vital Signs Temp 97.7 F 10/10/23 09:37 Pulse 85 10/11/23 06:58 Resp 18 10/11/23 06:58 BP 106/67 10/11/23 06:58 Pulse Ox 97 10/10/23 09:37 FiO2 - Labs CBC & Chem 7: 09/19/23 09:43 09/19/23 09:43
[2023-10-11] MEDS: SENNOSIDES 8.6 MG TAB PO PRN (08:57)
[2023-10-11] MEDS: traZODone HCL 100 MG TAB PO PRN (20:12)
[2023-10-11] MEDS: DOXEPIN 25 MG CAP PO SCH (20:12)
[2023-10-11] MEDS: MELATONIN 5 MG TABLET PO SCH (20:12)
[2023-10-12] MEDS: ASPIRIN-ACET-CAFF 250-250-65MG 1 EACH TAB PO PRN (05:29)
[2023-10-12] MEDS: SENNOSIDES 8.6 MG TAB PO PRN (08:39)
[2023-10-12] MEDS ORDERED: QUEtiapine 25 MG TAB PO SCH (10:00)
[2023-10-12] MEDS ORDERED: LITHIUM CARBONATE ER 450 MG TABLET.ER PO SCH (10:15)
[2023-10-12] MEDS: ACETAMINOPHEN TAB 325 MG TAB PO PRN (10:22)
[2023-10-12] MEDS ORDERED: OLANZapine 10 MG VIAL IM PRN (10:50)
--- NOTE | 2023-10-12 11:05 | P.PN ---
Progress Note - Text Progress Note Date: 10/12/23 Interval history: Patient was seen today in the hallways, she was agreeable to speak to designer writer nikki trevino. Patient was initially somewhat cooperative with designer writer however was very focused on discharge. She was pacing the room, states that she feels that she needs to move her legs all the time. She claims that she has not been doing well since she got transitioned onto the long-acting injection. She continues to be fairly difficult to redirect, continues to be argumentative, flight of ideas today. Somewhat pressured in her speech. She continues to speak about [place] and comparing the medical systems and continues to minimize her need for treatment. When asked about discharge planning she states that "I don't need to go to a hotel I'm an independent woman and I can do whatever I want" and was fairly defiant when speaking about medications today. Patient continues to have poor decision making and poor impulse control. She did state that she slept better last night. at this time she is denying any suicidal or homicidal ideations intent or plan. Denying any auditory or visual hallucinations. MENTAL STATUS EXAM: General Appearance: Patient appears to be mildly improving appearance, rosenberg and black hair, stated age is alert, argumentative. Behavior: Patient is seated without any agitated behavior. Difficult to redirect, pacing the room. Speech: Patient's speech is fluent and pressured. Rambling. Mood/Affect: She claims that her mood is "fine, I want to leave" affect is labile. Suicidality/Homicidality: Denies Perceptions: Denies Though content/process: Rambling at times, loose associations, poor decision making, flight of ideas. Memory and concentration: Alert and oriented 3. Judgment and insight: Poor impulse control and poor insight IMPRESSIONS: Bipolar disorder, mixed episode with psychotic features Cannabis use disorder PLAN: -Patient is admitted under involuntary status to MHU for stabilization of psychiatric symptoms and safety. Patient has not signed adult voluntary form and medication consent and is placed in patient's chart. -Medications : trazodone 100 mg when necessary for sleep. melatonin for sleep. abilify Maintenna 400 mg IM on 10/08 and next dose will be due on 11/05 to ensure compliance. doxepin 25 mg qhs for sleep. added depakene 250 mg bid for mood stabilization, if patient refuses PO then she is to receive IM zyprexa. -Ativan and Haldol PRN for agitation/aggression -NRT - not needed as patient does not smoke -SW on board for discharge planning. Encourage patient to participate in groups to work on coping skills. patient deferred with the bottom saw operator however now patient is refusing treatment/meds, patient requested an independent evaluation, this was completed on 10/02, patient received/consented to a treatment order on 10/07. patient receved [facility] on 10/08 and spoke with sister over the phone and due to the high risk that patient will smoke marijuana upon discharge and high risk of rehospitalization, will allow LUU more time and continue on with PO meds and observe if patient is doing well. Patient is continuing to display poor insight/judgment and decision making and continues to display manic behaviors/sx and will continue to focus on treatment.
[2023-10-12] MEDS: VALPROIC ACID ORAL SOLN 250 MG/5 ML CUP PO SCH ×2 (11:26→19:58)
[2023-10-12] MEDS: MELATONIN 5 MG TABLET PO SCH (19:58)
[2023-10-12] MEDS: DOXEPIN 25 MG CAP PO SCH (19:58)
[2023-10-12] MEDS: traZODone HCL 100 MG TAB PO PRN (22:07)
[2023-10-12] MEDS: GABAPENTIN 100 MG CAP PO PRN (23:39)
[2023-10-13] MEDS: VALPROIC ACID ORAL SOLN 250 MG/5 ML CUP PO SCH (09:32)
--- NOTE | 2023-10-13 10:32 | P.PN ---
Progress Note - Text Progress Note Date: 10/13/23 Interval history: Patient was seen today in the hallways, she was agreeable to speak to marketing copywriter nikki trevino. Patient continues to be fairly argumentative about her medications. She was reporting that the Depakote was "too strong" and when asked further about this she decided speak more about the side effects and the side effect profile however is not experiencing this at this time. She continues to be fairly argumentative about the other options and we spoke about either adding lithium versus Seroquel for mood stabilization and patient claims that she would like to print out of it. Patient states that she is doing "fine" continues to be intrusive and difficult to redirect. States that she is sleeping "fine" at night however was fairly vague about the hours she is sleeping. Claims that her appetite is fair, she is going to groups. Continues to be focused on discharge. Patient continues to have poor decision making and poor impulse control. at this time she is denying any suicidal or homicidal ideations intent or plan. Denying any auditory or visual hallucinations. MENTAL STATUS EXAM: General Appearance: Patient appears to be mildly improving appearance, rosenberg and black hair, stated age is alert, argumentative. Behavior: Patient is seated without any agitated behavior. Difficult to redirect, pacing the room. Speech: Patient's speech is fluent and pressured. Rambling. Mood/Affect: She claims that her mood is "fine" affect is labile. Suicidality/Homicidality: Denies Perceptions: Denies Though content/process: Rambling at times, loose associations, poor decision making, flight of ideas. Memory and concentration: Alert and oriented 3. Judgment and insight: Poor impulse control and poor insight IMPRESSIONS: Bipolar disorder, mixed episode with psychotic features Cannabis use disorder PLAN: -Patient is admitted under involuntary status to MHU for stabilization of psychiatric symptoms and safety. Patient has not signed adult voluntary form and medication consent and is placed in patient's chart. -Medications : trazodone 100 mg when necessary for sleep. melatonin for sleep. abilify Maintenna 400 mg IM on 10/08 and next dose will be due on 11/05 to ensure compliance. doxepin 25 mg qhs for sleep. d/c depakene due to patient request and claims that she wants decide between seroquel vs lithium, if patient refuses PO then she is to receive IM zyprexa. -Ativan and Haldol PRN for agitation/aggression -NRT - not needed as patient does not smoke -SW on board for discharge planning. Encourage patient to participate in groups to work on coping skills. patient deferred with the securities attorney however now patient is refusing treatment/meds, patient requested an independent evaluation, this was completed on 10/02, patient received/consented to a treatment order on 10/07. patient receved [facility] on 10/08 and spoke with sister over the phone and due to the high risk that patient will smoke marijuana upon discharge and high risk of rehospitalization, will allow [facility] more time and continue on with PO meds and observe if patient is doing well. Patient is continuing to display poor insight/judgment and decision making and continues to display manic behaviors/sx and will continue to focus on treatment.
[2023-10-13] MEDS: MAG HYDROX/AL HYDROX/SIMETH 30 ML CUP PO PRN (11:21)
[2023-10-13] MEDS: QUEtiapine 25 MG TAB PO SCH ×2 (11:33→20:28)
[2023-10-13 14:29] VITALS: BMI 21.5
[2023-10-13] MEDS: traZODone HCL 100 MG TAB PO PRN ×2 (20:26→20:28)
[2023-10-13] MEDS: MELATONIN 5 MG TABLET PO SCH (20:27)
[2023-10-13] MEDS: DOXEPIN 25 MG CAP PO SCH (20:28)
[2023-10-14] MEDS: QUEtiapine 25 MG TAB PO SCH ×2 (08:46→20:31)
[2023-10-14] MEDS: SENNOSIDES 8.6 MG TAB PO PRN (10:26)
--- NOTE | 2023-10-14 12:05 | P.PN ---
Progress Note - Text Progress Note Date: 10/14/23 Interval history: Patient was seen today in the hallways, she was agreeable to speak to television script writer nikki trevino. States Seroquel seems to be working well. patient was more cooperative today and directable. Patient states that she is doing "fine" and more appropriate affect. States that she is sleeping "what she needs to sleep" at night however was fairly vague about the hours she is sleeping. Claims that her appetite is fair, she is going to groups. Continues to be focused on discharge. imrpoving decision making and impulse control. at this time she is denying any suicidal or homicidal ideations intent or plan. Denying any auditory or visual hallucinations. MENTAL STATUS EXAM: General Appearance: Patient appears to be mildly improving appearance, rosenberg and black hair, stated age is alert. Behavior: Patient is seated without any agitated behavior. improving Speech: Patient's speech is fluent and pressured. improving Mood/Affect: She claims that her mood is "better" affect is more appropriate Suicidality/Homicidality: Denies Perceptions: Denies Though content/process: more goal oriented. focused on discharge. less grandiose. Memory and concentration: Alert and oriented 3. Judgment and insight: Poor impulse control and poor insight, improving IMPRESSIONS: Bipolar disorder, mixed episode with psychotic features Cannabis use disorder PLAN: -Patient is admitted under involuntary status to MHU for stabilization of psychiatric symptoms and safety. Patient has not signed adult voluntary form and medication consent and is placed in patient's chart. -Medications : trazodone 100 mg when necessary for sleep. melatonin for sleep. abilify Maintenna 400 mg IM on 10/08 and next dose will be due on 11/05 to ensure compliance. doxepin 25 mg qhs for sleep. continue seroquel 25 mg bid for mood stabilization. -Ativan and Haldol PRN for agitation/aggression -NRT - not needed as patient does not smoke -SW on board for discharge planning. Encourage patient to participate in groups to work on coping skills. patient deferred with the deputy prosecuting attorney however now patient is refusing treatment/meds, patient requested an independent evaluation, this was completed on 10/02, patient received/consented to a treatment order on 10/07. patient receved [facility] on 10/08 and spoke with sister over the phone and due to the high risk that patient will smoke marijuana upon discharge and high risk of rehospitalization, will allow [facility] more time and continue on with PO meds and observe if patient is doing well. Patient is improving, likely discharge 10/15, to parents home vs hotel.
[2023-10-14] MEDS: ACETAMINOPHEN TAB 325 MG TAB PO PRN (14:24)
[2023-10-14] MEDS: DOXEPIN 25 MG CAP PO SCH (20:31)
[2023-10-14] MEDS: MELATONIN 5 MG TABLET PO SCH (20:32)
[2023-10-15] MEDS: QUEtiapine 25 MG TAB PO SCH (07:47)
[2023-10-15 08:18] VITALS: BP 134/75; PULSE 97; RESP 16; TEMP 97.5
--- NOTE | 2023-10-15 10:09 | P.DS ---
Providers Date of admission: 09/18/23 16:52 Expected date of discharge: 10/15/23 Attending physician: Jostin Le MD Consults: 09/18/23 17:00 Consult Physician Routine Consulting Provider: [place] Physician Consult Reason/Comments: medical management Do you want consulting provider notified?: Yes Primary care physician: Stated None - Discharge Diagnosis(es) (1) Bipolar disorder, curr episode mixed, severe, with psychotic features Current Visit: Yes Status: Acute Priority: High (2) Cannabis use disorder Current Visit: Yes Status: Acute Priority: High Hospital Course: Admission HPI: Admission note was completed by video game script writer "Patient is a 43-year-old female who is currently staying with her friend in the area, but currently lives with her in [place] and was visiting. Denies having any kids. Patient presented to the hospital yesterday and apparently was complaining of depression and suicidal ideations. Patient was petitioned by her friend stating "talking to spirits, thinks she is [place], worried her family's.okay, calling police to check on friends". Petition also states the patient has not been sleeping, panic attacks, outbursts, erratic thoughts, paranoid thinking, history of suicide". Patient was admitted involuntarily to the mental health unit. Patient was seen today pacing the unit appeared to be disheveled in appearance. She was agreeable to streaked red in the office. She was fairly labile, tearful when speaking about why she is in the hospital. She was positive for benzodiazepines and THC on her UDS. She claims that "my family doesn't trust me". She claims that she witnessed Marko downhill since 2020. Claims that she only wants to go to the [facility] and smoke marijuana as her "medication". Claims that she is focused on discharge and wants to leave at this time. Has poor decision making skills, poor insight and judgment. She did not want to take other medications. 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 She was fairly tearful, she was displaying other delusions and also paranoia towards others including her family. She states that she is seeing "signs everywhere". She states that several of the nurses that interacted with her in the ER and also on the unit have names of her relatives. She states that her sleep has been very poor lately, appetite as been fair.Patient denies any suicidal or homicidal ideations intent or plan. At this time patient denies any auditory or visual hallucinations. She has a flight of ideas, difficult to redirect. Pacing the room. She claims that she only smokes marijuana and does THC products. Denies any cigarettes or any other recreational drug use." Hospital course: Upon admission to the unit patient was admitted involuntarily on a petition and certificate and a second certificate was completed and faxed with the courts. The patient ended up not signing into for all with divorce attorney, patient was requesting an independent evaluation which was completed. Patient ended up receiving a court order for mental health treatment. Patient was initially fairly intrusive, aggressive and hostile and refusing medications however with time in treatment she eventually got along well with other patients on the unit and followed unit protocol. Patient was compliant with the medications and denied any side effects throughout hospital course. Patient was started on Abilify by mouth and increased her dose of 15 mg daily for mood stabilization/psychosis, she was given Abilify Maintenna 400 mg IM on 10/08 tolerating it well, her next dose will be due on 11/05. Patient was also placed on doxepin 25 mg daily at bedtime for sleep, melatonin daily at bedtime for sleep, trazodone when necessary for sleep, Seroquel 25 mg twice a day for mood stabilization. Patient was placed on lithium and also Lamictal however was not tolerating them well. Patient spoke of her stressors and engaged in therapy both group and individual. Patient was also seen by medical team for history and physical exam. Throughout the course of the hospitalization patient gradually improved with regards to mood lability, anxiety, psychosis, aggression/argumentativeness, sleep and returned back to their baseline level of functioning. On the day of discharge patient denied any suicidal or homicidal ideations intent or plan denied any auditory or visual hallucinations. Patient endorsed wanting to live for her future and her family. The patient denied any access to guns or weapons. Patient denied any paranoia and did not endorse any delusions. Patient does have a significant history of substance abuse and was counseled on abstaining from all substances including alcohol and marijuana. Patient elected to do outpatient substance use treatment program through her outpatient psychiatric provider. Patient was also counseled on the medications and need for regular compliance and was encouraged to follow-up with their outpatient appointment for mental health and also for primary care. Prior to discharge a family meeting will be arranged by 7th grade social studies teacher to answer any questions and ensure safety upon discharge. High School Social Science Teacher spoke with patient's sister several occasions to discuss patient's treatment and planning going forward and also safety and risk of the importance of abstinence from marijuana, she agreed. Patients sister help coordinate patient's discharge and follow-up planning with a psychiatrist in [place] this patient plans to move there and continue on with treatment. Today patient will be discharged to her parents home in [place]. Mental status exam: General Appearance: Patient appears to be thin, curly hair, stated age is alert, pleasant, and cooperative. Patient is in no acute distress and has improved hygiene and grooming Behavior: Patient is calmly seated without any agitated behavior. Speech: Patient's speech is fluent and nonpressured. Mood/Affect: Patient reports their mood is "good", affect is congruent and euthymic. Suicidality/Homicidality: Patient denies having any suicidal or homicidal ideation intent or plan. Perceptions: Patient denies any auditory or visual hallucinations. Though content/process: There is no evidence of any delusional thought content and thought process is linear and goal-directed. more future oriented Memory and concentration: AOX3, grossly intact for the purposes of this session. Can spell "WORLD" backwards correctly. Judgment and insight: improved with guarded prognosis Impression: Bipolar disorder, mixed episode, severe with psychotic features Cannabis use disorder Plan: -Continue with discharge today as patient has improved and stabilized psychiatrically and is not currently an imminent threat to herself and/or others. Patient will remain at chronically elevated risk for harm to self and/or others due to her impulsivity and substance abuse. -Continue medications: Abilify Maintenna 400 mg IM given on 10/08, next dose to be given on 11/05 every monthly. Seroquel 25 mg twice a day for mood stabilization. Trazodone daily at bedtime when necessary for sleep, doxepin 25 mg scheduled daily at bedtime for insomnia. Melatonin scheduled for sleep. -Patient was counseled on the need for medication compliance and appropriate follow-up at mental health and also primary care for medical issues. Patient verbalized understanding and agreed. -Social work to arrange for and conduct family meeting to ensure safety upon discharge and answer any questions/concerns. Social work also to arrange for patients follow up appointments for psychiatric care along with follow up with primary care provider. -Patient counseled on abstaining from recreational drugs and marijuana and alcohol. Was informed/educated on the adverse effects on their physical and mental health. Patient verbally agreed and understood. Patient was offered substance abuse treatment however declined at this time. -Patient will have her case and follow-up transferred to her home in [place] with her outpatient psychiatrist. -Patient was instructed to return to the hospital or seek immediate medical care if their psychiatric or medical symptoms do worsen or reoccur. Allergies Allergy/AdvReac Type Severity Reaction Status Date / Time No Known Allergies Allergy Verified 09/19/23 00:29 Laboratory Results WBC 7.6 k/uL (3.8-10.6) 09/19/23 09:43 RBC 4.57 m/uL (3.80-5.40) 09/19/23 09:43 Hgb 14.1 gm/dL (11.4-16.0) 09/19/23 09:43 Hct 42.4 % (34.0-46.0) 09/19/23 09:43 MCV 92.9 fL (80.0-100.0) 09/19/23 09:43 MCH 30.9 pg (25.0-35.0) 09/19/23 09:43 MCHC 33.3 g/dL (31.0-37.0) 09/19/23 09:43 RDW 12.6 % (11.5-15.5) 09/19/23 09:43 Plt Count 210 k/uL (150-450) 09/19/23 09:43 MPV 8.1 09/19/23 09:43 Neutrophils % 75 % 09/19/23 09:43 Lymphocytes % 16 % 09/19/23 09:43 Monocytes % 7 % 09/19/23 09:43 Eosinophils % 1 % 09/19/23 09:43 Basophils % 0 % 09/19/23 09:43 Neutrophils # 5.7 k/uL (1.3-7.7) 09/19/23 09:43 Lymphocytes # 1.2 k/uL (1.0-4.8) 09/19/23 09:43 Monocytes # 0.5 k/uL (0-1.0) 09/19/23 09:43 Eosinophils # 0.0 k/uL (0-0.7) 09/19/23 09:43 Basophils # 0.0 k/uL (0-0.2) 09/19/23 09:43 Sodium 139 mmol/L (137-145) 09/19/23 09:43 Potassium 4.3 mmol/L (3.5-5.1) 09/19/23 09:43 Chloride 105 mmol/L (98-107) 09/19/23 09:43 Carbon Dioxide 23 mmol/L (22-30) 09/19/23 09:43 Anion Gap 11 mmol/L 09/19/23 09:43 BUN 8 mg/dL (7-17) 09/19/23 09:43 Creatinine 0.64 mg/dL (0.52-1.04) 09/19/23 09:43 Est GFR (CKD-EPI)AfAm >90 (>60 ml/min/1.73 sqM) 09/19/23 09:43 Est GFR (CKD-EPI)NonAf >90 (>60 ml/min/1.73 sqM) 09/19/23 09:43 Glucose 89 mg/dL (74-99) 09/19/23 09:[address] Glu mg/dL 105 mg/dL 09/19/23 09:43 Hemoglobin A1c 5.3 % (<=6.0) 09/19/23 09:43 Calcium 9.6 mg/dL (8.4-10.2) 09/19/23 09:43 Total Bilirubin 0.9 mg/dL (0.2-1.3) 09/19/23 09:43 AST 50 U/L (14-36) H 09/19/23 09:43 ALT 21 U/L (4-34) 09/19/23 09:43 Alkaline Phosphatase 61 U/L (38-126) 09/19/23 09:43 Total Protein 7.6 g/dL (6.3-8.2) 09/19/23 09:43 Albumin 4.6 g/dL (3.5-5.0) 09/19/23 09:43 Triglycerides 71.50 mg/dL (0.00-149.00) 09/19/23 09:43 Cholesterol 173.00 mg/dL (0.00-200.00) 09/19/23 09:43 LDL Cholesterol, Calc 108.1 mg/dL (0.0-131.0) 09/19/23 09:43 VLDL Cholesterol, Calc 14.30 mg/dL (5.00-40.00) 09/19/23 09:43 HDL Cholesterol 50.60 mg/dL (40.00-60.00) 09/19/23 09:43 Cholesterol/HDL Ratio 3.42 Ratio 09/19/23 09:43 TSH 0.615 mIU/L (0.465-4.680) 09/19/23 09:43 Urine Color Colorless 09/30/23 21: Urine Appearance Clear (Clear) 09/30/23 21: Urine pH 5.5 (5.0-8.0) 09/30/23 21: Ur Specific [place] 1.008 (1.001-1.035) 09/30/23 21: Urine Protein Negative (Negative) 09/30/23 21: Urine Glucose (UA) Negative (Negative) 09/30/23 21: Urine Ketones Trace (Negative) H 09/30/23 21: Urine Blood Negative (Negative) 09/30/23 21: Urine Nitrite Negative (Negative) 09/30/23 21: Urine Bilirubin Negative (Negative) 09/30/23 21: Urine Urobilinogen <2.0 mg/dL (<2.0) 09/30/23 21: Ur Leukocyte Esterase Negative (Negative) 09/30/23 21:33 Urine HCG, Qual Not Detected (Not Detectd) 09/30/23 21:33 Urine Opiates Screen Not Detected (NotDetected) 09/18/23 12:12 Ur Oxycodone Screen Not Detected (NotDetected) 09/18/23 12:12 Urine Methadone Screen Not Detected (NotDetected) 09/18/23 12:12 Ur Propoxyphene Screen Not Detected (NotDetected) 09/18/23 12:12 Ur Barbiturates Screen Not Detected (NotDetected) 09/18/23 12:12 U Tricyclic Antidepress Not Detected (NotDetected) 09/18/23 12:12 Ur Phencyclidine Scrn Not Detected (NotDetected) 09/18/23 12:12 Ur Amphetamines Screen Not Detected (NotDetected) 09/18/23 12:12 U Methamphetamines Scrn Not Detected (NotDetected) 09/18/23 12:12 U Benzodiazepines Scrn Detected (NotDetected) H 09/18/23 12:12 Urine Cocaine Screen Not Detected (NotDetected) 09/18/23 12:12 U Marijuana (THC) Screen Detected (NotDetected) H 09/18/23 12:12 Coronavirus (PCR) Not Detected (Not Detectd) 09/18/23 17:02 Vital Signs Temp 97.5 F L 10/15/23 07:54 Pulse 97 10/15/23 07:54 Resp 16 10/15/23 07:54 BP 134/75 10/15/23 07:54 Pulse Ox 98 10/12/23 06:00 FiO2 Patient Condition at Discharge: Stable Plan - Discharge Summary Discharge Rx Participant: Yes New Discharge Prescriptions: New traZODone HCL [Desyrel] 100 mg PO HS PRN 30 Days #30 tab PRN Reason: Insomnia Melatonin 10 mg PO HS #0 tab Sennosides [Senokot] 8.6 mg PO DAILY PRN 30 Days #30 tab PRN Reason: Constipation QUEtiapine [SEROquel] 25 mg PO BID 30 Days #60 tab ARIPiprazole IM [Abilify Maintena] 400 mg IM QMONTHLY #1 each Sodium Chloride 0.65% Nasal [Deep Sea (Saline)] 2 spray NASAL QID PRN ml PRN Reason: Congestion Doxepin [SINEquan] 25 mg PO HS 30 Days #30 cap Discharge Medication List ARIPiprazole IM [Abilify Maintena] 400 mg IM QMONTHLY #1 each 10/15/23 [Rx] Doxepin [SINEquan] 25 mg PO HS 30 Days #30 cap 10/15/23 [Rx] Melatonin 10 mg PO HS #0 tab 10/15/23 [Rx] QUEtiapine [SEROquel] 25 mg PO BID 30 Days #60 tab 10/15/23 [Rx] Sennosides [Senokot] 8.6 mg PO DAILY PRN 30 Days #30 tab 10/15/23 [Rx] Sodium Chloride 0.65% Nasal [Deep Sea (Saline)] 2 spray NASAL QID PRN ml 10/15/23 [Rx] traZODone HCL [Desyrel] 100 mg PO HS PRN 30 Days #30 tab 10/15/23 [Rx] Follow up Appointment(s)/Referral(s): Gigi Jasso [Other] - 10/20/23 2:00 pm (Tien 10/20 @ 14:00 Virtual ) [facility] [Other] - 10/21/23 2:00 pm (apt. Made for Dr. Edgar on October 21 at 2pm. ) None,Stated [Primary Care Provider] - 1-2 days Patient Instructions/Handouts: Bipolar Disorder (DC) Activity/Diet/Wound Care/Special Instructions: Avoid the use of street drugs and alcohol. Take all medications as prescribed. When you are in need of refills on your medications, please contact your medical provider and/or outpatient psychiatrist/provider to have this done. Please go to your scheduled outpatient appointment for aftercare treatment. If symptoms return or become worse, call the crisis line at and/or go to the nearest emergency room for evaluation. National Suicide Hotline 098. Discharge Disposition: HOME SELF-CARE
== END 2023-10-15 12:28 | disposition home or self-care (01) | DRG 885 ==
LOC: EC 05:31 → 3MHU 16:52
PROVIDERS: ADMIT Psychiatry & Neurology Psychiatry; ATTEND Psychiatry & Neurology Psychiatry
DX: F31.64 Bipolar disorder, current episode mixed, severe, with psychotic features (principal); R45.851 Suicidal ideations; K59.00 Constipation, unspecified; T43.96XA Underdosing of unspecified psychotropic drug, initial encounter; F12.10 Cannabis abuse, uncomplicated; F41.0 Panic disorder [episodic paroxysmal anxiety]; Z91.128 Patient's intentional underdosing of medication regimen for other reason; Z91.51 Personal history of suicidal behavior; Z11.52 Encounter for screening for COVID-19; Z71.89 Other specified counseling; Z71.3 Dietary counseling and surveillance; Z79.899 Other long term (current) drug therapy; Z28.21 Immunization not carried out because of patient refusal
CPT/HCPCS: 80053; 80061; 80306; 81003; 81025; 82075; 83036; 84443; 85025; 87635

== ENCOUNTER 2025-04-02 08:01 | Emergency (ER) | payer BC, OTHER ==
--- NOTE | 2025-04-02 09:33 | ED ---
General Adult HPI - General Chief complaint: Psychiatric Symptoms Stated complaint: mental health Time Seen by Provider: 04/02/25 08:13 Source: patient Mode of arrival: ambulatory Limitations: no limitations - History of Present Illness Initial comments: Patient is a pleasant 44-year-old female past medical history of bipolar disorder presenting today for racing thoughts and insomnia. Patient states that she has between psychiatrist, last saw her prior psychiatrist 6 months ago and has been out of her BuSpar and Abilify since then. Her grandfather has been dying and over the last 2 weeks she has been self-medicating with marijuana, and her family is concerned due to this. Patient denies any current suicidal or homicidal thoughts. When asked about access to weapons she states that she does not but "if she really wanted to she could". Patient denies patient Dors is mild headache. Denies any new changes numbness weakness. Denies illicit drug use. States that if she does drink alcohol she may have 1 drink and then switches to nonalcoholic beverages. - Related Data Previous Rx's Medication Instructions Recorded ARIPiprazole [Abilify] 10 mg PO QID 14 Days #56 tab 04/02/25 busPIRone HCl [Buspar] 10 mg PO BID 14 Days #28 tab 04/02/25 Allergies Allergy/AdvReac Type Severity Reaction Status Date / Time No Known Allergies Allergy Verified 04/02/25 13:40 Review of Systems ROS Statement: Those systems with pertinent positive or pertinent negative responses have been documented in the HPI. ROS Other: All systems not noted in ROS Statement are negative. Past Medical History Past Medical History: No Reported History History of Any Multi-Drug Resistant Organisms: None Reported Past Surgical History: No Surgical Hx Reported Past Psychological History: Anxiety, Depression Smoking Status: Never smoker Past Alcohol Use History: None Reported Past Drug Use History: None Reported General Exam - General Exam Comments Initial Comments: Visual Physical Exam Vital signs reviewed General: Well-appearing, nontoxic, no acute distress. Head: Normocephalic, atraumatic Eyes: PERRLA, EOMI ENT: Airway patent Chest: Nonlabored breathing Skin: No visual rash, normal skin tone Neuro: Alert and oriented 3 Musculoskeletal: No gross abnormalities Psychiatric: Pacing, cooperative, pleasant, rapid and pressured speech, denies SI/HI, visual or auditory hallucinations, does not appear to be responding to internal stimuli Limitations: no limitations Course Vital Signs 04/02/25 08:05 Temperature 98.3 F Pulse Rate 94 Respiratory 20 Rate Blood Pressure 137/100 O2 Sat by Pulse 98 Oximetry Medical Decision Making - Medical Decision Making Was pt. sent in by a medical professional or institution ([facility], GEAR MACHINIST, urgent care, hospital, or snf...) When possible be specific @ -[No] Did you speak to anyone other than the patient for history (EMS, parent, family, police, friend...)? What history was obtained from this source @ -[No] Did you review nursing and triage notes (agree or disagree)? Why? @ -[I reviewed nursing and triage notes] Were old charts reviewed (outside hosp., previous admission, EMS record, old EKG, old radiological studies, urgent care reports/EKG's, snf records)? Report findings @ -[Medical records reviewed] Differential Diagnosis (chest pain, altered mental status, abdominal pain women, abdominal pain men, vaginal bleeding, weakness, fever, dyspnea, syncope, headache, dizziness, GI bleed, back pain, seizure, CVA, palpatations, mental health, musculoskeletal)? @ -[not applicable] EKG interpreted by me (3pts min.). @ -[As above] X-rays interpreted by me (1pt min.). @ -[None done] CT interpreted by me (1pt min.). @ -[None done] U/S interpreted by me (1pt. min.). @ -[None done] What testing was considered but not performed or refused? (CT, X-rays, U/S, labs)? Why? @ -[None] What meds were considered but not given or refused? Why? @ -[None] Did you discuss the management of the patient with other professionals (professionals i.e. [facility], GEAR MACHINIST, lab, RT, psych nurse, social service technician, master certified rv technician, teacher, financial administration officer, clinical case manager)? Give summary @ -[No] Was smoking cessation discussed for >3mins.? @ -[No] Was critical care preformed (if so, how long)? @ -[No] Were there social determinants of health that impacted care today? How? (Homelessness, low income, unemployed, alcoholism, drug addiction, transportation, low edu. Level, literacy, decrease access to med. care, halfway, rehab)? @ -[No] Was there de-escalation of care discussed even if they declined (Discuss DNR or withdrawal of care, Hospice)? @ -[No] What co-morbidities impacted this encounter? (DM, HTN, Smoking, COPD, CAD, Cancer, CVA, ARF, Chemo, Hep., AIDS, mental health diagnosis, sleep apnea, morbid obesity)? @ Bipolar disorder Was patient admitted / discharged? Hospital course, mention meds given and route, prescriptions, significant lab abnormalities, going to OR and other pertinent info. @ -[hospital course] patient is a pleasant [id number]-year-old female past history bipolar disorder presenting today for insomnia and racing thoughts. Has been off meds for 6 months. Is c cooperative and pleasant on assessment. Blood alcohol 0. Medically cleared for EPS evaluation Patient was seen and evaluated by EPS. Was cleared for discharge home. Pharmacy kindly called patient's old pharmacy in [place] and obtained history of medications. Patient is Abilify BuSpar lamotrigine and Wellbutrin. Discussed this with patient, she requests only fill of Abilify and BuSpar. This will be filled for the patient for 2 weeks. Patient was directed to follow-up as soon as possible regarding refill of medications. She has appoint with her therapist on . Undiagnosed new problem with uncertain prognosis? @ -[No] Drug Therapy requiring intensive monitoring for toxicity (Heparin, Nitro, Insulin, Cardizem)? @ -[No] Were any procedures done? @ -[No] Diagnosis/symptom? @ -[default] Acute, or Chronic, or Acute on Chronic? @ -[default] Uncomplicated (without systemic symptoms) or Complicated (systemic symptoms)? @ -[default] Side effects of treatment? @ -[No] Exacerbation, Progression, or Severe Exacerbation? @ -[No] Poses a threat to life or bodily function? How? (Chest pain, [place], [place], pneumonia, PE, COPD, DKA, ARF, appy, cholecystitis, CVA, Diverticulitis, Homicidal, Suicidal, threat to staff... and all critical care pts) @ -[No] Disposition Clinical Impression: Manic episode Disposition: HOME SELF-CARE Condition: Stable Instructions (If sedation given, give patient instructions): Bipolar Disorder (ED) Additional Instructions: Every disease is a spectrum and a small chance still exists that a serious condition could develop, for this reason, please monitor yourself closely for new, changing or worsening symptoms, symptoms that do not begin to improve in the next 5 days, thoughts of wanting to harm or kill yourself, thoughts of wanting to harm or kill others, seeing or hearing things that are not there, concerns for your safety, inability to tolerate/keep down fluids or your medications, inability to follow up with outpatient providers as instructed and should you experience these symptoms or should you have any further concerns for your wellbeing please return to the ED or call 911 immediately. PLEASE call your primary care physician as soon as possible to arrange / discuss plan for followup appointment. Appointment in the next 1-3 days is strongly encouraged if possible. PLEASE let us know here before you leave if there is anything further we can do to be of any assistance. Take care and feel Better! Prescriptions: ARIPiprazole [Abilify] 10 mg PO QID 14 Days #56 tab busPIRone HCl [Buspar] 10 mg PO BID 14 Days #28 tab Is patient prescribed a controlled substance at d/c from ED?: No Referrals: None,Stated [Primary Care Provider] - 1-2 days
[2025-04-02] MEDS: ACETAMINOPHEN TAB 500 MG TAB PO STA (10:26)
[2025-04-02 15:40] VITALS: BP 132/85; PULSE 77; RESP 18; TEMP 98.6
== END 2025-04-02 15:39 | disposition home or self-care (01) ==
LOC: EC 08:01
DX: F30.9 Manic episode, unspecified (principal); F12.90 Cannabis use, unspecified, uncomplicated
CPT/HCPCS: 82075; 99285

== ENCOUNTER 2025-06-10 15:03 | Emergency (ER) | payer BC ==
--- NOTE | 2025-06-10 15:58 | ED ---
General Adult HPI - General Chief complaint: Psychiatric Symptoms Stated complaint: mental haelth Time Seen by Provider: 06/10/25 15:17 Source: patient, police Mode of arrival: ambulatory Limitations: no limitations - History of Present Illness Initial comments: Patient is a 44-year-old female past medical history of bipolar disorder presenting today on court order for jw. Patient presents in police custody, barefoot and handcuffed with court order for psychiatric hospitalization. She also presents with a note from a doctor in [place], detailing reasoning for requesting court order, explaining that "patient is in [place] and made her way to [facility]...was recently petitioned for involuntary treatment". She had a court order 2 years ago for similar while in [place]. She recently took $60,000 out of the shared intermediate account between she and her to buy a third car. Patient has apparently making bizarre and grandiose statements. Patient states to myself that her is trying to santy her for divorce and therefore wants her hospitalized. She states that "everyone in the town of [place] wants to kill me". She is make statements such as wanting to go live in the [place] by herself. She denies SI/HI. Denies auditory visual hallucinations. Does intermittently use THC and mushrooms. Last mushroom use was 2 days ago. Denies alcohol use. States she does not take her Abilify as prescribed because she does not like how makes her feel. During ROS, pt notes mild crampy low ab pain and few episodes loose stool the last few days, but feels like is 2/2 anxiety regarding her current situation. Denies nausea, vomiting, fevers or additional complaints . - Related Data Home Medications Medication Instructions Recorded Confirmed ARIPiprazole [Abilify] 10 mg PO DAILY 06/10/25 06/10/25 Allergies Allergy/AdvReac Type Severity Reaction Status Date / Time No Known Allergies Allergy Verified 06/10/25 18:45 Review of Systems ROS Statement: Those systems with pertinent positive or pertinent negative responses have been documented in the HPI. ROS Other: All systems not noted in ROS Statement are negative. Past Medical History Past Medical History: No Reported History History of Any Multi-Drug Resistant Organisms: None Reported Past Surgical History: No Surgical Hx Reported Past Anesthesia/Blood Transfusion Reactions: No Reported Reaction Past Psychological History: Anxiety, Depression Smoking Status: Never smoker Past Alcohol Use History: None Reported Past Drug Use History: None Reported General Exam - General Exam Comments Initial Comments: PE: CONSTITUTIONAL: No apparent distress, well appearing, barefoot, dirt on feet, somewhat disheveled SKIN: Warm, dry, no jaundice, hives or petechiae EYES: Pupils are equally round, extraocular movements intact without nystagmus, clear conjunctiva, non-icteric sclera HENT: Normocephalic, atraumatic, moist mucus membranes, oropharynx clear without exudates NECK: , Full range of motion, normal appearance PULMONARY: Clear to auscultation without wheezes, rhonchi, or rales, normal excursion, no accessory muscle use and no stridor CARDIOVASCULAR: Regular rate, rhythm, normal S1 and S2. No appreciated murmurs, rubs or gallops. Strong radial pulses with intact distal perfusion. No lower extremity edema GASTROINTESTINAL: Soft, active bowel sounds throughout, non-tender, non- distended, no palpable masses, no rebound or guarding. No hepatosplenomegaly GENITOURINARY: MUSCULOSKELETAL: Extremities have no gross deformity NEUROLOGIC:_a/o x 3, GCS 15, normal mentation, w/ exception of psychiatric notes below, and clear speech. Moves all extremities x 4 without motor or sensory deficit PSYCHIATRIC: Anxious, angry, tearful mood and labile affect, thought process is tangential, speech is rapid and pressured Limitations: no limitations Course Vital Signs 06/10/25 06/10/25 06/10/25 15:06 19:00 23:00 Temperature 98.3 F Pulse Rate 96 74 85 Respiratory 16 17 17 Rate Blood Pressure 121/83 144/81 119/76 O2 Sat by Pulse 98 97 96 Oximetry 06/11/25 05:48 Temperature 97.9 F Pulse Rate 81 Respiratory 18 Rate Blood Pressure 122/86 O2 Sat by Pulse 99 Oximetry Medical Decision Making - Medical Decision Making Was pt. sent in by a medical professional or institution (, [place], AIR BRAKE MECHANIC, urgent care, hospital, or alf...) When possible be specific @ -Sent in on court order Did you speak to anyone other than the patient for history (EMS, parent, family, police, friend...)? What history was obtained from this source @ -No Did you review nursing and triage notes (agree or disagree)? Why? @ -I reviewed nursing and triage notes Were old charts reviewed (outside hosp., previous admission, EMS record, old EKG, old radiological studies, urgent care reports/EKG's, alf records)? Report findings @ -Medical records reviewed-reviewed notes thought to be sent from physician in [place] to criminal judge detailing reason for requesting court ordered hospitalization, brought in with court order by PD, detailing the reasoning for patient's "[place] psychiatric treatment", as detailed in HPI, Was admitted on 04/04/2025, reviewed discharge summary patient was discharged with diagnoses of bipolar disorder, manic episode severe, generalized anxiety disorder, cannabis use disorder and noncompliance Differential Diagnosis (chest pain, altered mental status, abdominal pain women, abdominal pain men, vaginal bleeding, weakness, fever, dyspnea, syncope, headache, dizziness, GI bleed, back pain, seizure, CVA, palpatations, mental health, musculoskeletal)? @Differential Mental Health Depression, anxiety, bipolar, psychosis, schizophrenia, borderline personality, situational depression, adjustment disorder, behavioral disorder, brain tumor, malingering, substance abuse, encephalopathy, medication reaction, dementia, hypothyroidism, degenerative neurologic disorder, lupus.... This is not meant to be all-inclusive list EKG interpreted by me (3pts min.). @ -As above X-rays interpreted by me (1pt min.). @ -None done CT interpreted by me (1pt min.). @ -None done U/S interpreted by me (1pt. min.). @ -None done What testing was considered but not performed or refused? (CT, X-rays, U/S, labs)? Why? @ -None What meds were considered but not given or refused? Why? @ -None Did you discuss the management of the patient with other professionals (professionals i.e. DrStephen, [place], AIR BRAKE MECHANIC, lab, RT, psych nurse, social work instructor, air intercept controller supervisor, teacher, data officer, case aide)? Give summary @ Discussed with EPS RN, pt recommended for inpatient mental health transfer Was smoking cessation discussed for >3mins.? @ -No Was critical care preformed (if so, how long)? @ -No Were there social determinants of health that impacted care today? How? (Homelessness, low income, unemployed, alcoholism, drug addiction, transportation, low edu. Level, literacy, decrease access to med. care, penitentiary, rehab)? @ -No Was there de-escalation of care discussed even if they declined (Discuss DNR or withdrawal of care, Hospice)? @ -No What co-morbidities impacted this encounter? (DM, HTN, Smoking, COPD, CAD, Cancer, CVA, ARF, Chemo, Hep., AIDS, mental health diagnosis, sleep apnea, morbid obesity)? Bipolar disorder Was patient admitted / discharged? Hospital course, mention meds given and route, prescriptions, significant lab abnormalities, going to OR and other pertinent info. @ Transfer to inpatient psychiatric facility- 44-year-old female presenting today on court order for manic episode of bipolar disorder. Reported to be spending large amounts of money and making grandiose statements. Presents in PD custody w/ court order and copy of note from physician in [place]. Appears disheveled, arrives barefoot, has rapid and pressured speech, tangential thoughts, making history taking difficult. Makes statements such as "Everyone in [place] wants me " and "My is calling all of the businesses in [place] and telling them I am manic so I can't get in anywhere". Physical exam is benign, pt notes loose stools the last couple of days with mild cramping abdominal pain, with soft and nontender abdomen. Otherwise denies new complaints. Patient medically cleared for EPS. EPS RN evaluated patient. Patient will be a psychiatric transfer. EPS RN request labs, Cepheid testing UA UDS. Patient is requesting a type and cross and refuses labs and unless type and cross obtained. Per patient request will obtain type and screen. Labs significant for my leukocytosis white blood cell count 13.18, CMP unremarkable, urinalysis with moderate leukocyte esterase rare bacteria and 3 squamous cells, potentially contaminated however due to patient's noted mild crampy lower abdominal pain and diarrhea on arrival will start on Keflex. UDS positive for marijuana. Clinical cert was completed by myself, I did attempt to discuss this with patient but she did "not want to listen" regarding this. Patient was accepted for transfer to [facility]. Undiagnosed new problem with uncertain prognosis? @ -No Drug Therapy requiring intensive monitoring for toxicity (Heparin, Nitro, Insulin, Cardizem)? @ -No Were any procedures done? @ -No Diagnosis/symptom? @ Bipolar disorder, manic episode Acute, or Chronic, or Acute on Chronic? @ acute Uncomplicated (without systemic symptoms) or Complicated (systemic symptoms)? complicated Side effects of treatment? @ -No Exacerbation, Progression, or Severe Exacerbation? @ -No Poses a threat to life or bodily function? How? (Chest pain, [place], [place], pneumonia, PE, COPD, DKA, ARF, appy, cholecystitis, CVA, Diverticulitis, Homicidal, Suicidal, threat to staff... and all critical care pts) @Potentially if left untreated - Lab Data Result diagrams: 06/10/25 19:22 06/10/25 19:22 Lab Results 06/10/25 06/10/25 06/10/25 Range/Units 16:58 16:58 19:00 WBC (4.50-10.00) 10*3/uL RBC (4.10-5.20) 10*6/uL Hgb (12.0-15.0) g/dL Hct (37.2-46.3) % MCV (80.0-97.0) fL MCH (27.0-32.0) pg MCHC (32.0-37.0) g/dL Plt Count (140-440) 10*3/uL MPV (9.5-12.2) fL Immature Gran % (Auto) % Neutrophils % % Lymphocytes % % Monocytes % % Eosinophils % % Basophils % % Immature Gran # (0.00-0.04) 10*3/uL Neutrophils # (1.80-7.70) 10*3/uL Lymphocytes # (0.90-5.00) 10*3/uL Monocytes # (0.20-1.00) 10*3/uL Eosinophils # (0.04-0.35) 10*3/uL Basophils # (0.00-0.10) 10*3/uL Sodium (137-145) mmol/L Potassium (3.5-5.1) mmol/L Chloride (98-107) mmol/L Carbon Dioxide (22-30) mmol/L Anion Gap mmol/L BUN (7-17) mg/dL Creatinine (0.52-1.04) mg/dL Est GFR (CKD-EPI)AfAm (>60 ml/min/1.73 sqM) Est GFR (CKD-EPI)NonAf (>60 ml/min/1.73 sqM) Glucose (74-99) mg/dL Calcium (8.4-10.2) mg/dL Total Bilirubin (0.2-1.3) mg/dL AST (14-36) U/L ALT (4-34) U/L Alkaline Phosphatase (38-126) U/L Total Protein (6.3-8.2) g/dL Albumin (3.5-5.0) g/dL Urine Color Light Yellow Urine Appearance Clear (Clear) Urine pH 5.5 (5.0-8.0) Ur Specific [place] 1.020 (1.001-1.035) Urine Protein Negative (Negative) Urine Glucose (UA) Negative (Negative) Urine Ketones Negative (Negative) Urine Blood Negative (Negative) Urine Nitrite Negative (Negative) Urine Bilirubin Negative (Negative) Urine Urobilinogen <2.0 (<2.0) mg/dL Ur Leukocyte Esterase Moderate H (Negative) Urine RBC 1 (0-5) /hpf Urine WBC 2 (0-5) /hpf Ur Squamous Epith Cells 3 (0-4) /hpf Urine Bacteria Rare H (None) /hpf Urine Mucus Rare H (None) /hpf Urine HCG, Qual Not Detected (Not Detectd) Urine Opiates Screen Not Detected (NotDetected) Ur Oxycodone Screen Not Detected (NotDetected) Urine Methadone Screen Not Detected (NotDetected) Ur Barbiturates Screen Not Detected (NotDetected) U Tricyclic Antidepress Not Detected (NotDetected) Ur Phencyclidine Scrn Not Detected (NotDetected) Ur Amphetamines Screen Not Detected (NotDetected) U Methamphetamines Scrn Not Detected (NotDetected) U Benzodiazepines Scrn Not Detected (NotDetected) Urine Cocaine Screen Not Detected (NotDetected) U Marijuana (THC) Screen Detected H (NotDetected) Influenza Type A (PCR) (Not Detectd) Influenza Type B (PCR) (Not Detectd) RSV (PCR) (Not Detectd) SARS-CoV-2 (PCR) (Not Detectd) Blood Type Blood Type Recheck Bld Type Recheck Status 06/10/25 06/10/25 06/10/25 Range/Units 19:15 19:22 19:22 WBC 13.18 H (4.50-10.00) 10*3/uL RBC 4.43 (4.10-5.20) 10*6/uL Hgb 14.4 (12.0-15.0) g/dL Hct 41.4 (37.2-46.3) % MCV 93.5 (80.0-97.0) fL MCH 32.5 H (27.0-32.0) pg MCHC 34.8 (32.0-37.0) g/dL Plt Count 274 (140-440) 10*3/uL MPV 9.9 (9.5-12.2) fL Immature Gran % (Auto) 0.2 % Neutrophils % 74.7 % Lymphocytes % 15.9 % Monocytes % 7.5 % Eosinophils % 1.3 % Basophils % 0.4 % Immature Gran # 0.03 (0.00-0.04) 10*3/uL Neutrophils # 9.84 H (1.80-7.70) 10*3/uL Lymphocytes # 2.10 (0.90-5.00) 10*3/uL Monocytes # 0.99 (0.20-1.00) 10*3/uL Eosinophils # 0.17 (0.04-0.35) 10*3/uL Basophils # 0.05 (0.00-0.10) 10*3/uL Sodium 138 (137-145) mmol/L Potassium 4.4 (3.5-5.1) mmol/L Chloride 104 (98-107) mmol/L Carbon Dioxide 24 (22-30) mmol/L Anion Gap 10 mmol/L BUN 12 (7-17) mg/dL Creatinine 0.56 (0.52-1.04) mg/dL Est GFR (CKD-EPI)AfAm >90 (>60 ml/min/1.73 sqM) Est GFR (CKD-EPI)NonAf >90 (>60 ml/min/1.73 sqM) Glucose 93 (74-99) mg/dL Calcium 10.2 (8.4-10.2) mg/dL Total Bilirubin 0.8 (0.2-1.3) mg/dL AST 31 (14-36) U/L ALT 30 (4-34) U/L Alkaline Phosphatase 103 (38-126) U/L Total Protein 7.7 (6.3-8.2) g/dL Albumin 4.6 (3.5-5.0) g/dL Urine Color Urine Appearance (Clear) Urine pH (5.0-8.0) Ur Specific [place] (1.001-1.035) Urine Protein (Negative) Urine Glucose (UA) (Negative) Urine Ketones (Negative) Urine Blood (Negative) Urine Nitrite (Negative) Urine Bilirubin (Negative) Urine Urobilinogen (<2.0) mg/dL Ur Leukocyte Esterase (Negative) Urine RBC (0-5) /hpf Urine WBC (0-5) /hpf Ur Squamous Epith Cells (0-4) /hpf Urine Bacteria (None) /hpf Urine Mucus (None) /hpf Urine HCG, Qual (Not Detectd) Urine Opiates Screen (NotDetected) Ur Oxycodone Screen (NotDetected) Urine Methadone Screen (NotDetected) Ur Barbiturates Screen (NotDetected) U Tricyclic Antidepress (NotDetected) Ur Phencyclidine Scrn (NotDetected) Ur Amphetamines Screen (NotDetected) U Methamphetamines Scrn (NotDetected) U Benzodiazepines Scrn (NotDetected) Urine Cocaine Screen (NotDetected) U Marijuana (THC) Screen (NotDetected) Influenza Type A (PCR) (Not Detectd) Influenza Type B (PCR) (Not Detectd) RSV (PCR) (Not Detectd) SARS-CoV-2 (PCR) (Not Detectd) Blood Type O Negative Blood Type Recheck No Previous Record Bld Type Recheck Status [facility] ONLY 06/10/25 Range/Units 19:22 WBC (4.50-10.00) 10*3/uL RBC (4.10-5.20) 10*6/uL Hgb (12.0-15.0) g/dL Hct (37.2-46.3) % MCV (80.0-97.0) fL MCH (27.0-32.0) pg MCHC (32.0-37.0) g/dL Plt Count (140-440) 10*3/uL MPV (9.5-12.2) fL Immature Gran % (Auto) % Neutrophils % % Lymphocytes % % Monocytes % % Eosinophils % % Basophils % % Immature Gran # (0.00-0.04) 10*3/uL Neutrophils # (1.80-7.70) 10*3/uL Lymphocytes # (0.90-5.00) 10*3/uL Monocytes # (0.20-1.00) 10*3/uL Eosinophils # (0.04-0.35) 10*3/uL Basophils # (0.00-0.10) 10*3/uL Sodium (137-145) mmol/L Potassium (3.5-5.1) mmol/L Chloride (98-107) mmol/L Carbon Dioxide (22-30) mmol/L Anion Gap mmol/L BUN (7-17) mg/dL Creatinine (0.52-1.04) mg/dL Est GFR (CKD-EPI)AfAm (>60 ml/min/1.73 sqM) Est GFR (CKD-EPI)NonAf (>60 ml/min/1.73 sqM) Glucose (74-99) mg/dL Calcium (8.4-10.2) mg/dL Total Bilirubin (0.2-1.3) mg/dL AST (14-36) U/L ALT (4-34) U/L Alkaline Phosphatase (38-126) U/L Total Protein (6.3-8.2) g/dL Albumin (3.5-5.0) g/dL Urine Color Urine Appearance (Clear) Urine pH (5.0-8.0) Ur Specific [place] (1.001-1.035) Urine Protein (Negative) Urine Glucose (UA) (Negative) Urine Ketones (Negative) Urine Blood (Negative) Urine Nitrite (Negative) Urine Bilirubin (Negative) Urine Urobilinogen (<2.0) mg/dL Ur Leukocyte Esterase (Negative) Urine RBC (0-5) /hpf Urine WBC (0-5) /hpf Ur Squamous Epith Cells (0-4) /hpf Urine Bacteria (None) /hpf Urine Mucus (None) /hpf Urine HCG, Qual (Not Detectd) Urine Opiates Screen (NotDetected) Ur Oxycodone Screen (NotDetected) Urine Methadone Screen (NotDetected) Ur Barbiturates Screen (NotDetected) U Tricyclic Antidepress (NotDetected) Ur Phencyclidine Scrn (NotDetected) Ur Amphetamines Screen (NotDetected) U Methamphetamines Scrn (NotDetected) U Benzodiazepines Scrn (NotDetected) Urine Cocaine Screen (NotDetected) U Marijuana (THC) Screen (NotDetected) Influenza Type A (PCR) Not Detected (Not Detectd) Influenza Type B (PCR) Not Detected (Not Detectd) RSV (PCR) Not Detected (Not Detectd) SARS-CoV-2 (PCR) Not Detected (Not Detectd) Blood Type Blood Type Recheck Bld Type Recheck Status Disposition Clinical Impression: Bipolar disorder, manic, UTI (urinary tract infection) Disposition: TRANSFER TO PSYCH HOSP/UNIT Condition: Stable Referrals: None,Stated [Primary Care Provider] - 1-2 days
[2025-06-10 17:16] LABS: Bacteria,Urine Rare /hpf; Bilirubin,Urine Negative (Negative); Blood,Urine Negative (Negative); Color,Urine Light Yellow; Glucose,Urine (UA) Negative (Negative); Ketones,Urine Negative (Negative); Leukocyte Esterase,Urine Moderate (Negative); Mucus,Urine Rare /hpf; Nitrite,Urine Negative (Negative); PH, Urine 5.5 (5.0-8.0); Protein,Urine Negative (Negative); RBC,Urine 1 /hpf (0-5); Specific Gravity,Urine 1.020 (1.001-1.035); Squamous Epithelial Cell,Urine 3 /hpf (0-4); Urobilinogen,Urine <2.0 mg/dL (<2.0); WBC,Urine 2 /hpf (0-5)
[2025-06-10 19:34] LABS: Basophils # (A) 0.05 10*3/uL (0.00-0.10); Basophils % (A) 0.4 %; Eosinophils # (A) 0.17 10*3/uL (0.04-0.35); Eosinophils % (A) 1.3 %; HCT 41.4 % (37.2-46.3); HGB 14.4 g/dL (12.0-15.0); Lymphocytes # (A) 2.10 10*3/uL (0.90-5.00); Lymphocytes % (A) 15.9 %; MCH 32.5 pg (27.0-32.0); MCHC 34.8 g/dL (32.0-37.0); MCV 93.5 fL (80.0-97.0); Monocytes # (A) 0.99 10*3/uL (0.20-1.00); Monocytes % (A) 7.5 %; Neutrophils # (A) 9.84 10*3/uL (1.80-7.70); Neutrophils % (A) 74.7 %; Platelet Count 274 10*3/uL (140-440); RBC 4.43 10*6/uL (4.10-5.20); RDW 13.2 % (11.5-14.5); WBC 13.18 10*3/uL (4.50-10.00)
[2025-06-10 19:53] LABS: ALT 30 U/L (4-34); AST 31 U/L (14-36); African American GFR (CKD) >90 (>60 ml/min/1.73 sqM); Albumin 4.6 g/dL (3.5-5.0); Alkaline Phosphatase 103 U/L (38-126); Anion Gap 10 mmol/L; Blood Urea Nitrogen 12 mg/dL (7-17); Calcium 10.2 mg/dL (8.4-10.2); Carbon Dioxide 24 mmol/L (22-30); Chloride 104 mmol/L (98-107); Glucose 93 mg/dL (74-99); Non-African American GFR(CKD) >90 (>60 ml/min/1.73 sqM); Potassium 4.4 mmol/L (3.5-5.1); Sodium 138 mmol/L (137-145); Total Protein 7.7 g/dL (6.3-8.2)
[2025-06-10 20:10] LABS: Barbiturate Screen,Urine Not Detected (NotDetected); Benzodiazepines Screen,Urine Not Detected (NotDetected); Opiate Screen,Urine Not Detected (NotDetected); Oxycodone Screen, Urine Not Detected (NotDetected); Phencyclidine Screen,Urine Not Detected (NotDetected); Tricyclic Antidepressant,Urine Not Detected (NotDetected); Urn Cannabinoid Scrn Detected (NotDetected)
[2025-06-10 20:11] LABS: RSV Not Detected (Not Detectd)
[2025-06-10] MEDS: ZOLPIDEM 5 MG TAB PO STA (22:40)
[2025-06-10] MEDS: CEPHALEXIN 500 MG CAP PO SCH (23:28)
[2025-06-11 05:50] VITALS: BP 122/86; PULSE 81; RESP 18; TEMP 97.9
[2025-06-11] MEDS ORDERED: HALOPERIDOL LACTATE 5 MG/ML 1 ML VIAL IM STA (06:36)
[2025-06-11] MEDS ORDERED: LORazepam 1 MG TAB PO STA (06:36)
== END 2025-06-11 07:42 ==
LOC: EC 15:03
DX: F31.9 Bipolar disorder, unspecified (principal); N39.0 Urinary tract infection, site not specified; Z11.52 Encounter for screening for COVID-19
CPT/HCPCS: 36415; 80053; 80306; 81001; 81025; 82075; 85025; 86900; 86901; 87636; 99285